=== PATIENT | male | born 1955 | race Caucasian/White ===

== ENCOUNTER 2021-09-08 13:43 | Inpatient (IN) | payer OTHER, MEDICARE ==
--- NOTE | 2021-09-08 14:39 | EDM.PDOC ---
ED HPI GENERAL MEDICAL PROBLEM - General Chief Complaint: Respiratory Problem Stated Complaint: COVID POSITIVE Time Seen by Provider: 09/08/21 14:20 Source of Information: Reports: Patient History Limitations: Reports: No Limitations - History of Present Illness INITIAL COMMENTS - FREE TEXT/NARRATIVE: This 66 yo male patient reports to the ED from the [facility] due to shortness of breath. The patient reports he tested positive for COVID at [facility]. The patient reports his symptoms started on Sunday Evening, but he has not been eating well over the past [address] Moss called from the [facility] reporting the patient reported chest pain and oxygen saturations <88%. The patient was sent to the ED for evaluation and treatment. Onset Date: 09/04/21 Duration: Constant, Getting Worse Location: Reports: Generalized Quality: Reports: Other Severity: Moderate Improves with: Reports: None Worsens with: Reports: None Context: Reports: Other Associated Symptoms: Reports: Chest Pain, Cough, Shortness of Breath, Weakness - Related Data Allergies Allergy/AdvReac Type Severity Reaction Status Date / Time No Known Allergies Allergy Verified 09/08/21 14:18 Home Meds: Home Meds Zolpidem [Ambien] 5 mg PO DAILY 09/08/21 [History] Past Medical History HEENT History: Reports: None Cardiovascular History: Reports: None Respiratory History: Reports: None Gastrointestinal History: Reports: None Genitourinary History: Reports: None Musculoskeletal History: Reports: None Neurological History: Reports: None Psychiatric History: Reports: None Endocrine/Metabolic History: Reports: None Hematologic History: Reports: None Immunologic History: Reports: None Oncologic (Cancer) History: Reports: None Dermatologic History: Reports: None - Infectious Disease History Infectious Disease History: Reports: None - Past Surgical History Head Surgeries/Procedures: Reports: None Social & Family History - Family History Family Medical History: No Pertinent Family History - Tobacco Use Tobacco Use Status *Q: Never Tobacco User Second Hand Smoke Exposure: No - Caffeine Use Caffeine Use: Reports: Coffee - Recreational Drug Use Recreational Drug Use: No ED ROS GENERAL - Review of Systems Review Of Systems: Comprehensive ROS is negative, except as noted in HPI. ED EXAM, GENERAL - Physical Exam Exam: See Below Exam Limited By: No Limitations General Appearance: Alert, WD/WN, Moderate Distress Eye Exam: Bilateral Eye: EOMI, Normal Inspection, PERRL Ears: Normal External Exam, Normal Canal, Hearing Grossly Normal, Normal TMs Nose: Normal Inspection, Normal Mucosa, No Blood Throat/Mouth: Normal Inspection, Normal Lips, Normal Teeth, Normal Gums, Normal Oropharynx, Normal Voice, No Airway Compromise Head: Atraumatic, Normocephalic, Sinus Tenderness Respiratory/Chest: Decreased Breath Sounds (bases bilaterally) Cardiovascular: No Edema, No Gallop, No JVD, No Murmur, No Rub, Tachycardia GI/Abdominal: Normal Bowel Sounds, Soft, Non-Tender, No Organomegaly, No Distention, No Abnormal Bruit, No Mass, Pelvis Stable (Male) Exam: Deferred Rectal (Males) Exam: Deferred Back Exam: Normal Inspection, Full Range of Motion, NT Extremities: Normal Inspection, Normal Range of Motion, Non-Tender, Normal Capillary Refill, No Pedal Edema Neurological: Alert, Oriented, CN II-XII Intact, Normal Cognition, Normal Gait, Normal Reflexes, No Motor/Sensory Deficits Psychiatric: Normal Affect, Normal Mood Skin Exam: Warm, Dry, Intact, Normal Color, No Rash Lymphatic: No Adenopathy #1 Interpretation EKG Date: 09/08/21 Time: 15:55 Rhythm: NSR Rate (Beats/Min): 97 Williamson: Normal P-Wave: Present QRS: Normal ST-T: Normal QT: Normal Comparison: No Change Course - Vital Signs Last Recorded V/S: Last Vital Signs Temp 100.1 F 09/08/21 14:06 Pulse 109 H 09/08/21 14:06 Resp 20 09/08/21 14:06 BP 125/80 09/08/21 14:06 Pulse Ox 92 L 09/08/21 14:07 - Orders/Labs/Meds Orders: Active Orders 24 hr Category Date Time Status CULTURE BLOOD [BC] Stat Lab 09/08/21 14:24 Received CULTURE BLOOD [BC] Stat Lab 09/08/21 14:26 Received Blood Culture x2 Reflex Set [OM.PC] Stat Oth 09/08/21 14:05 Ordered Labs: Laboratory Tests 09/08/21 09/08/21 09/08/21 Range/Units 14:24 14:24 14:24 WBC 7.9 (5.0-10.0) 10^3/uL RBC 4.43 L (4.6-6.2) 10^6/uL Hgb 14.1 (14.0-18.0) g/dL Hct 40.6 (40.0-54.0) % MCV 91.6 (80-100) fL MCH 31.8 (27.0-34.0) pg MCHC 34.7 (33.0-35.0) g/dL Plt Count 227 (150-450) 10^3/uL Neut % (Auto) 81.8 H (42.2-75.2) % Lymph % (Auto) 9.8 L (20.5-50.1) % [place] % (Auto) 8.3 H (2-8) % Eos % (Auto) 0.0 L (1.0-3.0) % Baso % (Auto) 0.1 (0.0-1.0) % Add Manual Diff Yes Neutrophils % (Manual) 81 H (42-75) % Band Neutrophils % 5 % Lymphocytes % (Manual) 7 L (20-50) % Monocytes % (Manual) 7 (2-8) % D-Dimer, Quantitative 2280 H (0-400) ng/mL Sodium 135 L (136-145) mmol/L Potassium 3.8 (3.5-5.1) mmol/L Chloride 100 (98-107) mmol/L Carbon Dioxide 24 (21-32) mmol/L Anion Gap 14.8 H (7-13) mEq/L BUN 19 H (7-18) mg/dL Creatinine 1.32 H (0.70-1.30) mg/dL Est Cr Clr Drug Dosing 62.21 mL/min Estimated GFR (MDRD) 54 BUN/Creatinine Ratio 14.4 (No establ ref range) Glucose 124 H (70-99) mg/dL Lactic Acid (0.4-2.0) mmol/L Calcium 7.9 L (8.5-10.1) mg/dL Total Bilirubin 0.7 (0.2-1.0) mg/dL AST 72 H (15-37) U/L ALT 38 (16-63) U/L Alkaline Phosphatase 55 (46-116) U/L Troponin I High Sens (<=76) pg/mL Total Protein 6.8 (6.4-8.2) g/dL Albumin 2.7 L (3.4-5.0) g/dL Globulin 4.1 Albumin/Globulin Ratio 0.66 09/08/21 09/08/21 Range/Units 14:24 14:24 WBC (5.0-10.0) 10^3/uL RBC (4.6-6.2) 10^6/uL Hgb (14.0-18.0) g/dL Hct (40.0-54.0) % MCV (80-100) fL MCH (27.0-34.0) pg MCHC (33.0-35.0) g/dL Plt Count (150-450) 10^3/uL Neut % (Auto) (42.2-75.2) % Lymph % (Auto) (20.5-50.1) % [place] % (Auto) (2-8) % Eos % (Auto) (1.0-3.0) % Baso % (Auto) (0.0-1.0) % Add Manual Diff Neutrophils % (Manual) (42-75) % Band Neutrophils % % Lymphocytes % (Manual) (20-50) % Monocytes % (Manual) (2-8) % D-Dimer, Quantitative (0-400) ng/mL Sodium (136-145) mmol/L Potassium (3.5-5.1) mmol/L Chloride (98-107) mmol/L Carbon Dioxide (21-32) mmol/L Anion Gap (7-13) mEq/L BUN (7-18) mg/dL Creatinine (0.70-1.30) mg/dL Est Cr Clr Drug Dosing mL/min Estimated GFR (MDRD) BUN/Creatinine Ratio (No establ ref range) Glucose (70-99) mg/dL Lactic Acid 1.5 (0.4-2.0) mmol/L Calcium (8.5-10.1) mg/dL Total Bilirubin (0.2-1.0) mg/dL AST (15-37) U/L ALT (16-63) U/L Alkaline Phosphatase (46-116) U/L Troponin I High Sens 21 (<=76) pg/mL Total Protein (6.4-8.2) g/dL Albumin (3.4-5.0) g/dL Globulin Albumin/Globulin Ratio Meds: Medications Discontinued Medications Generic Name Dose Route Start Last Admin Trade Name Freq PRN Reason Stop Dose Admin Iopamidol 100 ml 11/18/21 15:43 09/08/21 16:37 Iopamidol 755 Mg/Ml 100 Ml Bottle IVPUSH 09/08/21 15:44 79 ml ONETIME ONE Administration - Re-Assessments/Exams Free Text/Narrative Re-Assessment/Exam: 09/08/21 18:11 Nursing staff reported they had the patient off oxygen and his oxygen saturation dropped to the low 80% with increased difficulties breathing. This was with standing beside the bed and no physical exertion. Departure - Departure Time of Disposition: 18:58 Disposition: Admitted As Inpatient 66 Condition: Poor Clinical Impression: COVID, Hypoxia - Discharge Information *PRESCRIPTION DRUG MONITORING PROGRAM REVIEWED*: Not Applicable *COPY OF PRESCRIPTION DRUG MONITORING REPORT IN PATIENT RADHA: Not Applicable Care Plan Goals: Discussed the patient's history, examination, lab and CT results with Dr. Beard. Dr. Beard accepted the patient for continued evaluation and management at [facility] in [place]. Sepsis Event Note (ED) - Evaluation Sepsis Screening Result: No Definite Risk - Focused Exam Vital Signs: Vital Signs Temp Pulse Resp BP Pulse Ox 09/08/21 14:07 92 L 09/08/21 14:06 100.1 F 109 H 20 125/80 89 L - My Orders Last 24 Hours: My Active Orders 09/08/21 14:05 Blood Culture x2 Reflex Set [OM.PC] Stat 09/08/21 14:24 CULTURE BLOOD [BC] Stat 09/08/21 14:26 CULTURE BLOOD [BC] Stat - Assessment/Plan Last 24 Hours: My Active Orders 09/08/21 14:05 Blood Culture x2 Reflex Set [OM.PC] Stat 09/08/21 14:24 CULTURE BLOOD [BC] Stat 09/08/21 14:26 CULTURE BLOOD [BC] Stat
[2021-09-08 15:25] LABS: ANION GAP 14.8 mEq/L (7-13)
[2021-09-08] MEDS ORDERED: Iopamidol 755 Mg/ML 100 ML Bottle IVPUSH ONE (15:43)
--- NOTE | 2021-09-08 16:38 | CT ---
PROCEDURE INFORMATION: Exam: CT Chest With Contrast; Diagnostic Exam date and time: 09/08/2021 3:57 PM Age: 66 years old Clinical indication: Cough; Patient HX: Covid +, d-dimer 2200 TECHNIQUE: Imaging protocol: Diagnostic computed tomography of the chest with contrast. Radiation optimization: All CT scans at this facility use at least one of these dose optimization techniques: automated exposure control; mA and/or kV adjustment per patient size (includes targeted exams where dose is matched to clinical indication); or iterative reconstruction. Contrast material: ISOVUE 370; Contrast volume: 79 ml; Contrast route: INTRAVENOUS (IV); COMPARISON: No relevant prior studies available. FINDINGS: Lungs: Bilateral multifocal ground-glass infiltrates suspicious for COVID-19. Pleural spaces: Unremarkable. No pneumothorax. No pleural effusion. Heart: Unremarkable. No cardiomegaly. No pericardial effusion. Aorta: Unremarkable. No aortic aneurysm. Lymph nodes: Unremarkable. No enlarged lymph nodes. Bones/joints: Unremarkable. No acute fracture. Soft tissues: Small hiatus hernia. Small hypodense nodule in the left adrenal gland measures 1.1 cm; likely represents benign adenoma. IMPRESSION: 1. Multifocal infiltrates consistent with COVID-19. 2. No evidence of acute PE.
[2021-09-08] MEDS ORDERED: REMDESIVIR 200 MG in Sodium Chloride 0.9% 250 ML IV ONE (19:58)
[2021-09-08] MEDS ORDERED: Ondansetron 4 MG/2 ML SDV IVPUSH PRN (20:05)
[2021-09-08] MEDS ORDERED: Docusate Sodium 100 MG Cap PO PRN (20:05)
--- NOTE | 2021-09-08 20:19 | PCM.HP ---
H&P History of Present Illness - General Date of Service: 09/08/21 Admit Problem/Dx: Admission Diagnosis/Problem Admission Diagnosis/Problem Respiratory distress Source of Information: Patient - History of Present Illness Initial Comments - Free Text/Narative: h/o no chronic medical problems developed cough with sputum, subjective fever, malaise on Sunday increasing sob with activity, better with rest, associated with left sided chest discomfort no covid vaccine covid test positive on 09/07 went to clinic noted to have hypoxemia - Related Data Allergies/Adverse Reactions: Allergies Allergy/AdvReac Type Severity Reaction Status Date / Time No Known Allergies Allergy Verified 09/08/21 14:18 Home Medications: Home Meds Zolpidem [Ambien] 5 mg PO DAILY 09/08/21 [History] Past Medical History HEENT History: Reports: None Cardiovascular History: Reports: None Respiratory History: Reports: None Gastrointestinal History: Reports: None Genitourinary History: Reports: None Musculoskeletal History: Reports: None Neurological History: Reports: None Psychiatric History: Reports: None Endocrine/Metabolic History: Reports: None Hematologic History: Reports: None Immunologic History: Reports: None Oncologic (Cancer) History: Reports: None Dermatologic History: Reports: None - Infectious Disease History Infectious Disease History: Reports: None - Past Surgical History Head Surgeries/Procedures: Reports: None Social & Family History - Family History Family Medical History: No Pertinent Family History - Tobacco Use Tobacco Use Status *Q: Never Tobacco User Second Hand Smoke Exposure: No - Caffeine Use Caffeine Use: Reports: Coffee - Recreational Drug Use Recreational Drug Use: No H&P Review of Systems - Review of Systems: Review Of Systems: See Below General: Reports: Malaise, Weakness, Fatigue, Decreased Appetite Pulmonary: Reports: Shortness of Breath, Pleuritic Chest Pain Cardiovascular: Reports: Chest Pain. Denies: Edema Gastrointestinal: Denies: Abdominal Pain Genitourinary: Denies: Dysuria Psychiatric: Denies: Confusion Exam - Exam Exam: See Below - Vital Signs Vital Signs: Last Vital Signs Temp 100.1 F 09/08/21 14:06 Pulse 109 H 09/08/21 14:06 Resp 20 09/08/21 14:06 BP 125/80 09/08/21 14:06 Pulse Ox 92 L 09/08/21 14:07 Weight: 235 lb - Exam Quality Assessment: Supplemental Oxygen General: Alert, Oriented Neck: Supple Lungs: Normal Respiratory Effort, Decreased Breath Sounds, Rhonchi Cardiovascular: Regular Rate, Regular Rhythm GI/Abdominal Exam: Normal Bowel Sounds, Soft, Non-Tender Extremities: No Pedal Edema Skin: Warm, Dry Neurological: Cranial Nerves Intact, Reflexes Equal Bilateral Neuro Extensive - Mental Status: Alert, Oriented x3, Normal Mood/Affect Psychiatric: Alert, Normal Affect, Normal Mood - Patient Data Lab Results Last 24 hrs: Laboratory Results - last 24 hr 09/08/21 09/08/21 09/08/21 Range/Units 14:24 14:24 14:24 WBC 7.9 (5.0-10.0) 10^3/uL RBC 4.43 L (4.6-6.2) 10^6/uL Hgb 14.1 (14.0-18.0) g/dL Hct 40.6 (40.0-54.0) % MCV 91.6 (80-100) fL MCH 31.8 (27.0-34.0) pg MCHC 34.7 (33.0-35.0) g/dL Plt Count 227 (150-450) 10^3/uL Neut % (Auto) 81.8 H (42.2-75.2) % Lymph % (Auto) 9.8 L (20.5-50.1) % [place] % (Auto) 8.3 H (2-8) % Eos % (Auto) 0.0 L (1.0-3.0) % Baso % (Auto) 0.1 (0.0-1.0) % Add Manual Diff Yes Neutrophils % (Manual) 81 H (42-75) % Band Neutrophils % 5 % Lymphocytes % (Manual) 7 L (20-50) % Monocytes % (Manual) 7 (2-8) % D-Dimer, Quantitative 2280 H (0-400) ng/mL Sodium 135 L (136-145) mmol/L Potassium 3.8 (3.5-5.1) mmol/L Chloride 100 (98-107) mmol/L Carbon Dioxide 24 (21-32) mmol/L Anion Gap 14.8 H (7-13) mEq/L BUN 19 H (7-18) mg/dL Creatinine 1.32 H (0.70-1.30) mg/dL Est Cr Clr Drug Dosing 62.21 mL/min Estimated GFR (MDRD) 54 BUN/Creatinine Ratio 14.4 (No establ ref range) Glucose 124 H (70-99) mg/dL Lactic Acid (0.4-2.0) mmol/L Calcium 7.9 L (8.5-10.1) mg/dL Total Bilirubin 0.7 (0.2-1.0) mg/dL AST 72 H (15-37) U/L ALT 38 (16-63) U/L Alkaline Phosphatase 55 (46-116) U/L Troponin I High Sens (<=76) pg/mL Total Protein 6.8 (6.4-8.2) g/dL Albumin 2.7 L (3.4-5.0) g/dL Globulin 4.1 Albumin/Globulin Ratio 0.66 09/08/21 09/08/21 Range/Units 14:24 14:24 WBC (5.0-10.0) 10^3/uL RBC (4.6-6.2) 10^6/uL Hgb (14.0-18.0) g/dL Hct (40.0-54.0) % MCV (80-100) fL MCH (27.0-34.0) pg MCHC (33.0-35.0) g/dL Plt Count (150-450) 10^3/uL Neut % (Auto) (42.2-75.2) % Lymph % (Auto) (20.5-50.1) % [place] % (Auto) (2-8) % Eos % (Auto) (1.0-3.0) % Baso % (Auto) (0.0-1.0) % Add Manual Diff Neutrophils % (Manual) (42-75) % Band Neutrophils % % Lymphocytes % (Manual) (20-50) % Monocytes % (Manual) (2-8) % D-Dimer, Quantitative (0-400) ng/mL Sodium (136-145) mmol/L Potassium (3.5-5.1) mmol/L Chloride (98-107) mmol/L Carbon Dioxide (21-32) mmol/L Anion Gap (7-13) mEq/L BUN (7-18) mg/dL Creatinine (0.70-1.30) mg/dL Est Cr Clr Drug Dosing mL/min Estimated GFR (MDRD) BUN/Creatinine Ratio (No establ ref range) Glucose (70-99) mg/dL Lactic Acid 1.5 (0.4-2.0) mmol/L Calcium (8.5-10.1) mg/dL Total Bilirubin (0.2-1.0) mg/dL AST (15-37) U/L ALT (16-63) U/L Alkaline Phosphatase (46-116) U/L Troponin I High Sens 21 (<=76) pg/mL Total Protein (6.4-8.2) g/dL Albumin (3.4-5.0) g/dL Globulin Albumin/Globulin Ratio Result Diagrams: 09/08/21 14:24 09/08/21 14:24 - Problem List (1) Pneumonia due to COVID-19 virus SNOMED Code(s): 137773828520581362 ICD Code: U07.1 - COVID-19; J12.82 - PNEUMONIA DUE TO CORONAVIRUS DISEASE 2018 Status: Acute Current Visit: Yes (2) COVID SNOMED Code(s): 687389386 ICD Code: U07.1 - COVID-19 Status: Acute Current Visit: No (3) Hypoxia SNOMED Code(s): 964338290 ICD Code: R09.02 - HYPOXEMIA Status: Acute Current Visit: No Problem List Initiated/Reviewed/Updated: Yes Orders Last 24hrs: Active Orders 24 hr Category Date Time Status Admission Diagnosis [ADT] Urgent ADT 09/08/21 19:01 Ordered Admission Status [Patient Status] [ADT] Urgent ADT 09/08/21 19:01 Active Oxygen Therapy [RC] PRN Care 09/08/21 20:05 Ordered Peripheral IV Care [RC] . DIRECTED Care 09/08/21 20:07 Ordered Up With Assistance [RC] ASDIRECTED Care 09/08/21 20:05 Ordered VTE/DVT Education [RC] PER UNIT ROUTINE Care 09/08/21 20:05 Ordered Vital Signs [RC] Q4H Care 09/08/21 20:05 Ordered Regular Diet [DIET] Diet 09/08/21 Breakfast Ordered Venous Doppler Lwr Ext Bi [US] Routine Exams 09/09/21 08:00 Ordered CBC WITH AUTO DIFF [HEME] AM Lab 09/09/21 05:11 Ordered CBC WITH AUTO DIFF [HEME] AM Lab 09/10/21 05:11 Ordered CBC WITH AUTO DIFF [HEME] AM Lab 09/11/21 05:11 Ordered CBC WITH AUTO DIFF [HEME] AM Lab 09/12/21 05:11 Ordered CBC WITH AUTO DIFF [HEME] AM Lab 09/13/21 05:11 Ordered CBC WITH AUTO DIFF [HEME] AM Lab 09/14/21 05:11 Ordered COMPREHENSIVE METABOLIC PN,CMP [CHEM] DAILY Lab 09/08/21 20:00 Ordered COMPREHENSIVE METABOLIC PN,CMP [CHEM] DAILY Lab 09/09/21 20:00 Ordered COMPREHENSIVE METABOLIC PN,CMP [CHEM] DAILY Lab 09/10/21 20:00 Ordered COMPREHENSIVE METABOLIC PN,CMP [CHEM] DAILY Lab 09/11/21 20:00 Ordered COMPREHENSIVE METABOLIC PN,CMP [CHEM] DAILY Lab 09/12/21 20:00 Ordered CULTURE BLOOD [BC] Stat Lab 09/08/21 14:24 Received CULTURE BLOOD [BC] Stat Lab 09/08/21 14:26 Received DD [D-DIMER QUANTITATIVE] [COAG] AM Lab 09/09/21 05:11 Ordered DD [D-DIMER QUANTITATIVE] [COAG] AM Lab 09/10/21 05:11 Ordered DD [D-DIMER QUANTITATIVE] [COAG] AM Lab 09/11/21 05:11 Ordered DD [D-DIMER QUANTITATIVE] [COAG] AM Lab 09/12/21 05:11 Ordered PROCALCITONIN [REF] Routine Lab 09/09/21 05:00 Ordered Acetaminophen [TylenoL] Med 09/08/21 20:05 Ordered 650 mg PO Q4H PRN Docusate Sodium [Colace] Med 09/08/21 20:05 Ordered 100 mg PO BID PRN Enoxaparin [Lovenox] Med 09/08/21 21:00 Ordered 100 mg SUBCUT BID Ondansetron [Zofran] Med 09/08/21 20:05 Ordered 4 mg IVPUSH Q4H PRN Remdesivir 100 mg Med 09/09/21 20:00 Ordered Sodium Chloride 0.9% [Normal Saline AdvBag] 100 ml IV Q24H Remdesivir 200 mg Med 09/08/21 19:58 Ordered Sodium Chloride 0.9% [Normal Saline] 250 ml IV ONETIME Sodium Chloride 0.9% [Saline Flush] Med 09/08/21 20:05 Ordered 10 ml FLUSH ASDIRECTED PRN Zolpidem [Ambien] Med 09/08/21 20:05 Ordered 5 mg PO BEDTIME PRN dexAMETHasone Med 09/08/21 21:00 Ordered 6 mg PO DAILY@0800 Blood Culture x2 Reflex Set [OM.PC] Stat Oth 09/08/21 14:05 Ordered Peripheral IV Insertion Adult [OM.PC] Routine Oth 09/08/21 20:05 Ordered Saline Lock Insert [OM.PC] Routine Oth 09/08/21 20:05 Ordered Resuscitation Status Routine Resus Stat 09/08/21 20:05 Ordered Medication Orders Acetaminophen (Acetaminophen 325 Mg Tab) 650 mg PO Q4H PRN PRN Reason: Pain (Mild 1-3)/fever Dexamethasone (Dexamethasone 6 Mg Tablet) 6 mg PO DAILY@0800 ERIKA Docusate Sodium (Docusate Sodium 100 Mg Cap) 100 mg PO BID PRN PRN Reason: Constipation Enoxaparin Sodium (Enoxaparin 40 Mg/0.4 Ml Syringe) 100 mg SUBCUT BID ERIKA Remdesivir 200 mg/ Sodium (Chloride) 250 mls @ 250 mls/hr IV ONETIME ONE Stop: 09/08/21 20:57 Remdesivir 100 mg/ Sodium (Chloride) 100 mls @ 100 mls/hr IV Q24H ERIKA Stop: 09/12/21 20:59 Ondansetron HCl (Ondansetron 4 Mg/2 Ml Sdv) 4 mg IVPUSH Q4H PRN PRN Reason: Nausea/Vomiting Sodium Chloride (Sodium Chloride 0.9% 10 Ml Syringe) 10 ml FLUSH ASDIRECTED PRN PRN Reason: Keep Vein Open Zolpidem Tartrate (Zolpidem 5 Mg Tab) 5 mg PO BEDTIME PRN PRN Reason: Sleep Assessment/Plan Comment:: Acute hypoxemic respiratory failure Will supplement oxygen as needed Acute covid 19 pneumonia Vaccination status: unvaccinated Symptom onset: about 09/04/21 Covid test positive: 09/07/21 Treat with dexamethasone Treat with remdesivir Treat with mvi /vit d Follow daily cbc, bmp, trop, procal, ddimer Evaluations for concurrent bacterial pneumonia: Procalcitonin: pending no leukocytosis Hold Abx for now Evaluations for thrombotic complications Ddimer: increased Prophylaxis: use therapeutic dose bid lovenox CT chest negative for PE check US r/o dvt Hyponatremia Mild will recheck in AM Mildly Elevated Creatinine No h/o CKD will recheck in AM chest pain likely related to pneumonia negative trop - support oxygen need - f/up after pneumonia - consider stress test
[2021-09-08] MEDS: Enoxaparin 100 MG/1 ML Syringe SUBCUT SCH (20:47)
[2021-09-08] MEDS: Acetaminophen 325 MG Tab PO PRN (20:48)
[2021-09-08] MEDS: Dexamethasone 6 MG TABLET PO SCH (20:48)
[2021-09-08] MEDS: Zolpidem 5 MG Tab PO PRN (20:48)
[2021-09-09] MEDS: Acetaminophen 325 MG Tab PO PRN (04:18)
[2021-09-09 07:13] LABS: CHLORIDE,CL 102 mmol/L (98-107); SODIUM,NA 136 mmol/L (136-145)
[2021-09-09] MEDS: Dexamethasone 6 MG TABLET PO SCH (09:29)
[2021-09-09] MEDS: Enoxaparin 100 MG/1 ML Syringe SUBCUT SCH ×2 (09:29→21:31)
--- NOTE | 2021-09-09 11:13 | US ---
EXAMINATION: Venous Doppler Lwr Ext Bi SEX: Male AGE: 66 years CLINICAL HISTORY: 66-year-old hospitalized, COVID Positive, male with abnormally high serum D dimer. R/O DVT. Interpretation: Negative exam. No current sonographic evidence of DVT either lower extremity. No sign of intraluminal echogenic thrombus and normal compressibility deep veins of both lower extremities (calf, knee, thigh and groin, bilaterally). Satisfactory augmentation and venous waveforms demonstrated respectively in the peroneal/posterior tibial veins of both calves, popliteal veins behind both knees, and proximally in the femoral veins of both thighs and groins. No lymphadenopathy. No popliteal or Ramos's cyst spine the knees. No soft tissue hematomas.
--- NOTE | 2021-09-09 12:35 | PCM.PN ---
- General Info Date of Service: 09/09/21 Admission Dx/Problem (Free Text): Admission Diagnosis/Problem Admission Diagnosis/Problem Respiratory distress Subjective Update: continued to have moderate sob has been on [place] oxygen overnight had to increase upto 5 l/min has cough, no associated diarrhea Functional Status: Reports: Pain Controlled - Review of Systems Pulmonary: Reports: Shortness of Breath, Cough Gastrointestinal: Denies: Abdominal Pain Genitourinary: Denies: Dysuria Neurological: Denies: Confusion - Patient Data Vitals - Most Recent: Last Vital Signs Temp 97.1 F 09/09/21 11:40 Pulse 78 09/09/21 11:40 Resp 18 09/09/21 11:40 BP 114/72 09/09/21 11:40 Pulse Ox 87 L 09/09/21 11:40 Weight - Most Recent: 209 lb 11.2 oz I&O - Last 24 Hours: Intake & Output 09/08/21 09/09/21 09/09/21 22:59 06:59 14:59 Intake Total 540 540 360 Output Total 500 700 Balance 40 -160 360 Lab Results Last 24 Hours: Laboratory Results - last 24 hr 09/08/21 09/08/21 09/08/21 Range/Units 14:24 14:24 14:24 WBC 7.9 (5.0-10.0) 10^3/uL RBC 4.43 L (4.6-6.2) 10^6/uL Hgb 14.1 (14.0-18.0) g/dL Hct 40.6 (40.0-54.0) % MCV 91.6 (80-100) fL MCH 31.8 (27.0-34.0) pg MCHC 34.7 (33.0-35.0) g/dL Plt Count 227 (150-450) 10^3/uL Neut % (Auto) 81.8 H (42.2-75.2) % Lymph % (Auto) 9.8 L (20.5-50.1) % [place] % (Auto) 8.3 H (2-8) % Eos % (Auto) 0.0 L (1.0-3.0) % Baso % (Auto) 0.1 (0.0-1.0) % Add Manual Diff Yes Neutrophils % (Manual) 81 H (42-75) % Band Neutrophils % 5 % Lymphocytes % (Manual) 7 L (20-50) % Monocytes % (Manual) 7 (2-8) % D-Dimer, Quantitative 2280 H (0-400) ng/mL Sodium 135 L (136-145) mmol/L Potassium 3.8 (3.5-5.1) mmol/L Chloride 100 (98-107) mmol/L Carbon Dioxide 24 (21-32) mmol/L Anion Gap 14.8 H (7-13) mEq/L BUN 19 H (7-18) mg/dL Creatinine 1.32 H (0.70-1.30) mg/dL Est Cr Clr Drug Dosing 62.21 mL/min Estimated GFR (MDRD) 54 BUN/Creatinine Ratio 14.4 (No establ ref range) Glucose 124 H (70-99) mg/dL Lactic Acid (0.4-2.0) mmol/L Calcium 7.9 L (8.5-10.1) mg/dL Total Bilirubin 0.7 (0.2-1.0) mg/dL AST 72 H (15-37) U/L ALT 38 (16-63) U/L Alkaline Phosphatase 55 (46-116) U/L Troponin I High Sens (<=76) pg/mL Total Protein 6.8 (6.4-8.2) g/dL Albumin 2.7 L (3.4-5.0) g/dL Globulin 4.1 Albumin/Globulin Ratio 0.66 09/08/21 09/08/21 09/09/21 Range/Units 14:24 14:24 06:30 WBC (5.0-10.0) 10^3/uL RBC (4.6-6.2) 10^6/uL Hgb (14.0-18.0) g/dL Hct (40.0-54.0) % MCV (80-100) fL MCH (27.0-34.0) pg MCHC (33.0-35.0) g/dL Plt Count (150-450) 10^3/uL Neut % (Auto) (42.2-75.2) % Lymph % (Auto) (20.5-50.1) % [place] % (Auto) (2-8) % Eos % (Auto) (1.0-3.0) % Baso % (Auto) (0.0-1.0) % Add Manual Diff Neutrophils % (Manual) (42-75) % Band Neutrophils % % Lymphocytes % (Manual) (20-50) % Monocytes % (Manual) (2-8) % D-Dimer, Quantitative (0-400) ng/mL Sodium 136 (136-145) mmol/L Potassium 4.0 (3.5-5.1) mmol/L Chloride 102 (98-107) mmol/L Carbon Dioxide 24 (21-32) mmol/L Anion Gap 14.0 H (7-13) mEq/L BUN 18 (7-18) mg/dL Creatinine 1.06 (0.70-1.30) mg/dL Est Cr Clr Drug Dosing 77.47 mL/min Estimated GFR (MDRD) > 60 BUN/Creatinine Ratio 17.0 (No establ ref range) Glucose 158 H (70-99) mg/dL Lactic Acid 1.5 (0.4-2.0) mmol/L Calcium 8.1 L (8.5-10.1) mg/dL Total Bilirubin 0.7 (0.2-1.0) mg/dL AST 65 H (15-37) U/L ALT 35 (16-63) U/L Alkaline Phosphatase 54 (46-116) U/L Troponin I High Sens 21 (<=76) pg/mL Total Protein 6.4 (6.4-8.2) g/dL Albumin 2.4 L (3.4-5.0) g/dL Globulin 4.0 Albumin/Globulin Ratio 0.60 09/09/21 09/09/21 Range/Units 06:30 06:30 WBC 6.4 (5.0-10.0) 10^3/uL RBC 4.25 L (4.6-6.2) 10^6/uL Hgb 13.5 L (14.0-18.0) g/dL Hct 39.1 L (40.0-54.0) % MCV 92.0 (80-100) fL MCH 31.8 (27.0-34.0) pg MCHC 34.5 (33.0-35.0) g/dL Plt Count 254 (150-450) 10^3/uL Neut % (Auto) 83.6 H (42.2-75.2) % Lymph % (Auto) 10.6 L (20.5-50.1) % [place] % (Auto) 5.6 (2-8) % Eos % (Auto) 0.0 L (1.0-3.0) % Baso % (Auto) 0.2 (0.0-1.0) % Add Manual Diff Neutrophils % (Manual) (42-75) % Band Neutrophils % % Lymphocytes % (Manual) (20-50) % Monocytes % (Manual) (2-8) % D-Dimer, Quantitative 1950 H (0-400) ng/mL Sodium (136-145) mmol/L Potassium (3.5-5.1) mmol/L Chloride (98-107) mmol/L Carbon Dioxide (21-32) mmol/L Anion Gap (7-13) mEq/L BUN (7-18) mg/dL Creatinine (0.70-1.30) mg/dL Est Cr Clr Drug Dosing mL/min Estimated GFR (MDRD) BUN/Creatinine Ratio (No establ ref range) Glucose (70-99) mg/dL Lactic Acid (0.4-2.0) mmol/L Calcium (8.5-10.1) mg/dL Total Bilirubin (0.2-1.0) mg/dL AST (15-37) U/L ALT (16-63) U/L Alkaline Phosphatase (46-116) U/L Troponin I High Sens (<=76) pg/mL Total Protein (6.4-8.2) g/dL Albumin (3.4-5.0) g/dL Globulin Albumin/Globulin Ratio Med Orders - Current: Current Medications Acetaminophen (Acetaminophen 325 Mg Tab) 650 mg PO Q4H PRN PRN Reason: Pain (Mild 1-3)/fever Last Admin: 09/09/21 04:18 Dose: 650 mg Documented by: Dexamethasone (Dexamethasone 6 Mg Tablet) 6 mg PO DAILY@0800 [facility] Last Admin: 09/09/21 09:29 Dose: 6 mg Documented by: Docusate Sodium (Docusate Sodium 100 Mg Cap) 100 mg PO BID PRN PRN Reason: Constipation Enoxaparin Sodium (Enoxaparin 100 Mg/1 Ml Syringe) 100 mg SUBCUT BID [facility] Last Admin: 09/09/21 09:29 Dose: 100 mg Documented by: Remdesivir 100 mg/ Sodium (Chloride) 100 mls @ 100 mls/hr IV Q24H ERIKA Stop: 09/12/21 20:59 Ondansetron HCl (Ondansetron 4 Mg/2 Ml Sdv) 4 mg IVPUSH Q4H PRN PRN Reason: Nausea/Vomiting Sodium Chloride (Sodium Chloride 0.9% 10 Ml Syringe) 10 ml FLUSH ASDIRECTED PRN PRN Reason: Keep Vein Open Zolpidem Tartrate (Zolpidem 5 Mg Tab) 5 mg PO BEDTIME PRN PRN Reason: Sleep Last Admin: 09/08/21 20:48 Dose: 5 mg Documented by: Discontinued Medications Remdesivir 200 mg/ Sodium (Chloride) 250 mls @ 250 mls/hr IV ONETIME ONE Stop: 09/08/21 20:57 Last Admin: 09/08/21 20:43 Dose: 250 mls/hr Documented by: Iopamidol (Iopamidol 755 Mg/Ml 100 Ml Bottle) 100 ml IVPUSH ONETIME ONE Stop: 09/08/21 15:44 Last Admin: 09/08/21 16:37 Dose: 79 ml Documented by: - Exam Quality Assessment: Supplemental Oxygen General: Alert, Oriented Lungs: Rhonchi Cardiovascular: Regular Rate, Regular Rhythm GI/Abdominal Exam: Normal Bowel Sounds, Soft, Non-Tender Skin: Warm Neurological: No New Focal Deficit Psy/Mental Status: Alert, Normal Affect, Normal Mood - Patient Data Lab Results Last 24 hrs: Laboratory Results - last 24 hr 09/08/21 09/08/21 09/08/21 Range/Units 14:24 14:24 14:24 WBC 7.9 (5.0-10.0) 10^3/uL RBC 4.43 L (4.6-6.2) 10^6/uL Hgb 14.1 (14.0-18.0) g/dL Hct 40.6 (40.0-54.0) % MCV 91.6 (80-100) fL MCH 31.8 (27.0-34.0) pg MCHC 34.7 (33.0-35.0) g/dL Plt Count 227 (150-450) 10^3/uL Neut % (Auto) 81.8 H (42.2-75.2) % Lymph % (Auto) 9.8 L (20.5-50.1) % [place] % (Auto) 8.3 H (2-8) % Eos % (Auto) 0.0 L (1.0-3.0) % Baso % (Auto) 0.1 (0.0-1.0) % Add Manual Diff Yes Neutrophils % (Manual) 81 H (42-75) % Band Neutrophils % 5 % Lymphocytes % (Manual) 7 L (20-50) % Monocytes % (Manual) 7 (2-8) % D-Dimer, Quantitative 2280 H (0-400) ng/mL Sodium 135 L (136-145) mmol/L Potassium 3.8 (3.5-5.1) mmol/L Chloride 100 (98-107) mmol/L Carbon Dioxide 24 (21-32) mmol/L Anion Gap 14.8 H (7-13) mEq/L BUN 19 H (7-18) mg/dL Creatinine 1.32 H (0.70-1.30) mg/dL Est Cr Clr Drug Dosing 62.21 mL/min Estimated GFR (MDRD) 54 BUN/Creatinine Ratio 14.4 (No establ ref range) Glucose 124 H (70-99) mg/dL Lactic Acid (0.4-2.0) mmol/L Calcium 7.9 L (8.5-10.1) mg/dL Total Bilirubin 0.7 (0.2-1.0) mg/dL AST 72 H (15-37) U/L ALT 38 (16-63) U/L Alkaline Phosphatase 55 (46-116) U/L Troponin I High Sens (<=76) pg/mL Total Protein 6.8 (6.4-8.2) g/dL Albumin 2.7 L (3.4-5.0) g/dL Globulin 4.1 Albumin/Globulin Ratio 0.66 09/08/21 09/08/21 09/09/21 Range/Units 14:24 14:24 06:30 WBC (5.0-10.0) 10^3/uL RBC (4.6-6.2) 10^6/uL Hgb (14.0-18.0) g/dL Hct (40.0-54.0) % MCV (80-100) fL MCH (27.0-34.0) pg MCHC (33.0-35.0) g/dL Plt Count (150-450) 10^3/uL Neut % (Auto) (42.2-75.2) % Lymph % (Auto) (20.5-50.1) % [place] % (Auto) (2-8) % Eos % (Auto) (1.0-3.0) % Baso % (Auto) (0.0-1.0) % Add Manual Diff Neutrophils % (Manual) (42-75) % Band Neutrophils % % Lymphocytes % (Manual) (20-50) % Monocytes % (Manual) (2-8) % D-Dimer, Quantitative (0-400) ng/mL Sodium 136 (136-145) mmol/L Potassium 4.0 (3.5-5.1) mmol/L Chloride 102 (98-107) mmol/L Carbon Dioxide 24 (21-32) mmol/L Anion Gap 14.0 H (7-13) mEq/L BUN 18 (7-18) mg/dL Creatinine 1.06 (0.70-1.30) mg/dL Est Cr Clr Drug Dosing 77.47 mL/min Estimated GFR (MDRD) > 60 BUN/Creatinine Ratio 17.0 (No establ ref range) Glucose 158 H (70-99) mg/dL Lactic Acid 1.5 (0.4-2.0) mmol/L Calcium 8.1 L (8.5-10.1) mg/dL Total Bilirubin 0.7 (0.2-1.0) mg/dL AST 65 H (15-37) U/L ALT 35 (16-63) U/L Alkaline Phosphatase 54 (46-116) U/L Troponin I High Sens 21 (<=76) pg/mL Total Protein 6.4 (6.4-8.2) g/dL Albumin 2.4 L (3.4-5.0) g/dL Globulin 4.0 Albumin/Globulin Ratio 0.60 09/09/21 09/09/21 Range/Units 06:30 06:30 WBC 6.4 (5.0-10.0) 10^3/uL RBC 4.25 L (4.6-6.2) 10^6/uL Hgb 13.5 L (14.0-18.0) g/dL Hct 39.1 L (40.0-54.0) % MCV 92.0 (80-100) fL MCH 31.8 (27.0-34.0) pg MCHC 34.5 (33.0-35.0) g/dL Plt Count 254 (150-450) 10^3/uL Neut % (Auto) 83.6 H (42.2-75.2) % Lymph % (Auto) 10.6 L (20.5-50.1) % [place] % (Auto) 5.6 (2-8) % Eos % (Auto) 0.0 L (1.0-3.0) % Baso % (Auto) 0.2 (0.0-1.0) % Add Manual Diff Neutrophils % (Manual) (42-75) % Band Neutrophils % % Lymphocytes % (Manual) (20-50) % Monocytes % (Manual) (2-8) % D-Dimer, Quantitative 1950 H (0-400) ng/mL Sodium (136-145) mmol/L Potassium (3.5-5.1) mmol/L Chloride (98-107) mmol/L Carbon Dioxide (21-32) mmol/L Anion Gap (7-13) mEq/L BUN (7-18) mg/dL Creatinine (0.70-1.30) mg/dL Est Cr Clr Drug Dosing mL/min Estimated GFR (MDRD) BUN/Creatinine Ratio (No establ ref range) Glucose (70-99) mg/dL Lactic Acid (0.4-2.0) mmol/L Calcium (8.5-10.1) mg/dL Total Bilirubin (0.2-1.0) mg/dL AST (15-37) U/L ALT (16-63) U/L Alkaline Phosphatase (46-116) U/L Troponin I High Sens (<=76) pg/mL Total Protein (6.4-8.2) g/dL Albumin (3.4-5.0) g/dL Globulin Albumin/Globulin Ratio Result Diagrams: 09/09/21 06:30 09/09/21 06:30 Sepsis Event Note - Evaluation Sepsis Screening Result: No Definite Risk - Focused Exam Vital Signs: Vital Signs Temp Pulse Resp BP BP Pulse Ox 09/09/21 11:40 97.1 F 78 18 114/72 87 L 09/09/21 08:32 109/78 09/09/21 08:00 97 F 68 20 88/51 L 90 L 09/09/21 04:00 97.8 F 67 20 96/54 L 94 L - Problem List & Annotations (1) Pneumonia due to COVID-19 virus SNOMED Code(s): 574745871956426770 Code(s): U07.1 - COVID-19; J12.82 - PNEUMONIA DUE TO CORONAVIRUS DISEASE 2019 Status: Acute Current Visit: Yes (2) COVID SNOMED Code(s): 772724088 Code(s): U07.1 - COVID-19 Status: Acute Current Visit: No (3) Hypoxia SNOMED Code(s): 558293380 Code(s): R09.02 - HYPOXEMIA Status: Acute Current Visit: No - Problem List Review Problem List Initiated/Reviewed/Updated: Yes - My Orders Last 24 Hours: My Active Orders 09/08/21 20:05 Oxygen Therapy [RC] PRN Up With Assistance [RC] ASDIRECTED VTE/DVT Education [RC] Vital Signs [RC] 00,04,08,12,16,20 Acetaminophen [TylenoL] 650 mg PO Q4H PRN Docusate Sodium [Colace] 100 mg PO BID PRN Ondansetron [Zofran] 4 mg IVPUSH Q4H PRN Sodium Chloride 0.9% [Saline Flush] 10 ml FLUSH ASDIRECTED PRN Zolpidem [Ambien] 5 mg PO BEDTIME PRN Peripheral IV Insertion Adult [OM.PC] Routine Saline Lock Insert [OM.PC] Routine Resuscitation Status Routine 09/08/21 20:07 Peripheral IV Care [RC] 00,04,08,12,16,20 09/08/21 21:00 Enoxaparin [Lovenox] 100 mg SUBCUT BID dexAMETHasone 6 mg PO DAILY@0800 09/08/21 22:11 Isolation [COMM] Routine 09/09/21 06:30 PROCALCITONIN [REF] Routine 09/09/21 20:00 COMPREHENSIVE METABOLIC PN,CMP [CHEM] DAILY Remdesivir 100 mg Sodium Chloride 0.9% [Normal Saline AdvBag] 100 ml IV Q24H 09/10/21 05:11 CBC WITH AUTO DIFF [HEME] AM DD [D-DIMER QUANTITATIVE] [COAG] AM 11/20/21 20:00 COMPREHENSIVE METABOLIC PN,CMP [CHEM] DAILY 09/11/21 05:11 CBC WITH AUTO DIFF [HEME] AM DD [D-DIMER QUANTITATIVE] [COAG] AM 09/11/21 20:00 COMPREHENSIVE METABOLIC PN,CMP [CHEM] DAILY 09/12/21 05:11 CBC WITH AUTO DIFF [HEME] AM DD [D-DIMER QUANTITATIVE] [COAG] AM 09/12/21 20:00 COMPREHENSIVE METABOLIC PN,CMP [CHEM] DAILY 09/13/21 05:11 CBC WITH AUTO DIFF [HEME] AM 09/14/21 05:11 CBC WITH AUTO DIFF [HEME] AM - Plan Plan:: Acute hypoxemic respiratory failure Will supplement oxygen as needed Acute covid 19 pneumonia Vaccination status: unvaccinated Symptom onset: about 09/04/21 Covid test positive: 09/07/21 Treat with dexamethasone Treat with remdesivir Treat with mvi /vit d Follow daily cbc, bmp, trop, procal, ddimer Evaluations for concurrent bacterial pneumonia: Procalcitonin: pending no leukocytosis Hold Abx for now Evaluations for thrombotic complications Ddimer: increased Prophylaxis: use therapeutic dose bid lovenox CT chest negative for PE check US r/o dvt today Hyponatremia Mild will recheck in AM Mildly Elevated Creatinine likely JEN POA improved will recheck in AM hyperglycemia noted likely due to dexamethasone no h/o DM will need out pt f/up chest pain likely related to pneumonia negative trop - support oxygen need - f/up after pneumonia - consider stress test
[2021-09-09] MEDS: Multivitamins, Therapeutic with Minerals Tab PO SCH (13:32)
[2021-09-09] MEDS: Cholecalciferol (Vitamin D3) 25 MCG Tab PO SCH (13:32)
[2021-09-09] MEDS: REMDESIVIR 100 MG in Sodium Chloride 0.9% 100 ML IV SCH (21:31)
[2021-09-09 21:35] LABS: ANION GAP 12.8 mEq/L (7-13); CHLORIDE,CL 103 mmol/L (98-107); SODIUM,NA 138 mmol/L (136-145)
[2021-09-09] MEDS: Zolpidem 5 MG Tab PO PRN (23:00)
[2021-09-10] MEDS ORDERED: diphenhydrAMINE 50 MG Cap PO ONE (00:02)
[2021-09-10 07:26] LABS: ANION GAP 10.8 mEq/L (7-13); CHLORIDE,CL 106 mmol/L (98-107); SODIUM,NA 139 mmol/L (136-145)
[2021-09-10] MEDS: Dexamethasone 6 MG TABLET PO SCH (08:35)
[2021-09-10] MEDS: Multivitamins, Therapeutic with Minerals Tab PO SCH (08:35)
[2021-09-10] MEDS: Cholecalciferol (Vitamin D3) 25 MCG Tab PO SCH (08:35)
[2021-09-10] MEDS: Enoxaparin 100 MG/1 ML Syringe SUBCUT SCH (08:36)
[2021-09-10] MEDS ORDERED: 50% Dextrose in Water 50 ML Syringe IVPUSH PRN (09:18)
[2021-09-10] MEDS: cefTRIAXone 1 GM in Sodium Chloride 0.9% 50 ML IV SCH (10:12)
[2021-09-10] MEDS: Insulin Lispro 100 Units/ML 3 ML Vial SUBCUT SCH ×4 (10:15→21:27)
[2021-09-10] MEDS: Azithromycin 500 MG in Sodium Chloride 0.9% 250 ML IV SCH (10:53)
--- NOTE | 2021-09-10 13:32 | PCM.PN ---
- General Info Date of Service: 09/10/21 Admission Dx/Problem (Free Text): Admission Diagnosis/Problem Admission Diagnosis/Problem Respiratory distress Subjective Update: continued to have moderate sob - better with oxygen, worse with activity has been on [place] oxygen - had to increase to simple mask has cough, no associated diarrhea but had loose BM Functional Status: Reports: Tolerating Diet - Review of Systems General: Reports: Weakness Pulmonary: Reports: Shortness of Breath. Denies: Wheezing Cardiovascular: Denies: Chest Pain, Palpitations Gastrointestinal: Denies: Abdominal Pain Neurological: Denies: Confusion - Patient Data Vitals - Most Recent: Last Vital Signs Temp 97.7 F 09/10/21 08:00 Pulse 75 09/10/21 08:00 Resp 18 09/10/21 08:00 BP 109/63 09/10/21 08:00 Pulse Ox 95 09/10/21 10:34 Weight - Most Recent: 209 lb 11.2 oz I&O - Last 24 Hours: Intake & Output 09/09/21 09/10/21 09/10/21 22:59 06:59 14:59 Intake Total 590 120 710 Output Total 250 125 200 Balance 340 -5 510 Lab Results Last 24 Hours: Laboratory Results - last 24 hr 09/09/21 09/09/21 09/10/21 Range/Units 06:30 20:53 06:45 WBC 15.0 H (5.0-10.0) 10^3/uL RBC 4.16 L (4.6-6.2) 10^6/uL Hgb 13.4 L (14.0-18.0) g/dL Hct 38.3 L (40.0-54.0) % MCV 92.1 (80-100) fL MCH 32.2 (27.0-34.0) pg MCHC 35.0 (33.0-35.0) g/dL Plt Count 317 (150-450) 10^3/uL Neut % (Auto) 67.7 (42.2-75.2) % Lymph % (Auto) 6.5 L (20.5-50.1) % Russell % (Auto) 5.0 (2-8) % Baso % (Auto) 0.1 (0.0-1.0) % Add Manual Diff Yes Neutrophils % (Manual) 82 H (42-75) % Band Neutrophils % 6 % Lymphocytes % (Manual) 7 L (20-50) % Monocytes % (Manual) 5 (2-8) % D-Dimer, Quantitative (0-400) ng/mL Sodium 138 (136-145) mmol/L Potassium 3.8 (3.5-5.1) mmol/L Chloride 103 (98-107) mmol/L Carbon Dioxide 26 (21-32) mmol/L Anion Gap 12.8 (7-13) mEq/L BUN 23 H (7-18) mg/dL Creatinine 1.03 (0.70-1.30) mg/dL Est Cr Clr Drug Dosing 79.73 mL/min Estimated GFR (MDRD) > 60 BUN/Creatinine Ratio 22.3 (No establ ref range) Glucose 191 H (70-99) mg/dL POC Glucose (70-99) mg/dL Calcium 8.2 L (8.5-10.1) mg/dL Total Bilirubin 0.6 (0.2-1.0) mg/dL AST 60 H (15-37) U/L ALT 38 (16-63) U/L Alkaline Phosphatase 63 (46-116) U/L Total Protein 6.5 (6.4-8.2) g/dL Albumin 2.4 L (3.4-5.0) g/dL Globulin 4.1 Albumin/Globulin Ratio 0.59 Procalcitonin 0.10 H ng/mL 09/10/21 09/10/21 09/10/21 Range/Units 06:45 06:45 11:42 WBC (5.0-10.0) 10^3/uL RBC (4.6-6.2) 10^6/uL Hgb (14.0-18.0) g/dL Hct (40.0-54.0) % MCV (80-100) fL MCH (27.0-34.0) pg MCHC (33.0-35.0) g/dL Plt Count (150-450) 10^3/uL Neut % (Auto) (42.2-75.2) % Lymph % (Auto) (20.5-50.1) % Russell % (Auto) (2-8) % Baso % (Auto) (0.0-1.0) % Add Manual Diff Neutrophils % (Manual) (42-75) % Band Neutrophils % % Lymphocytes % (Manual) (20-50) % Monocytes % (Manual) (2-8) % D-Dimer, Quantitative 844 H (0-400) ng/mL Sodium 139 (136-145) mmol/L Potassium 3.8 (3.5-5.1) mmol/L Chloride 106 (98-107) mmol/L Carbon Dioxide 26 (21-32) mmol/L Anion Gap 10.8 (7-13) mEq/L BUN 20 H (7-18) mg/dL Creatinine 0.92 (0.70-1.30) mg/dL Est Cr Clr Drug Dosing 89.26 mL/min Estimated GFR (MDRD) > 60 BUN/Creatinine Ratio 21.7 (No establ ref range) Glucose 185 H (70-99) mg/dL POC Glucose 211 H (70-99) mg/dL Calcium 8.1 L (8.5-10.1) mg/dL Total Bilirubin 0.4 (0.2-1.0) mg/dL AST 48 H (15-37) U/L ALT 34 (16-63) U/L Alkaline Phosphatase 63 (46-116) U/L Total Protein 6.3 L (6.4-8.2) g/dL Albumin 2.3 L (3.4-5.0) g/dL Globulin 4.0 Albumin/Globulin Ratio 0.58 Procalcitonin ng/mL [facility] Results Last 24 Hours: Microbiology 09/08/21 14:26 Aerobic Blood Culture - Preliminary Blood - Venous - Lab Draw NO GROWTH AFTER 1 DAY Anaerobic Blood Culture - Preliminary NO GROWTH AFTER 1 DAY 09/08/21 14:24 Aerobic Blood Culture - Preliminary Blood - Arm, Left NO GROWTH AFTER 1 DAY Anaerobic Blood Culture - Preliminary NO GROWTH AFTER 1 DAY Med Orders - Current: Current Medications Acetaminophen (Acetaminophen 325 Mg Tab) 650 mg PO Q4H PRN PRN Reason: Pain (Mild 1-3)/fever Last Admin: 09/09/21 04:18 Dose: 650 mg Documented by: Cholecalciferol (Cholecalciferol (Vitamin D3) 25 Mcg Tab) 25 mcg PO DAILY [facility] Last Admin: 09/10/21 08:35 Dose: 25 mcg Documented by: Dexamethasone (Dexamethasone 6 Mg Tablet) 6 mg PO DAILY@0800 [facility] Last Admin: 09/10/21 08:35 Dose: 6 mg Documented by: Dextrose/Water (50% Dextrose In Water 50 Ml Syringe) 25 ml IVPUSH ASDIRECTED PRN PRN Reason: Hypoglycemia BS<70 Docusate Sodium (Docusate Sodium 100 Mg Cap) 100 mg PO BID PRN PRN Reason: Constipation Enoxaparin Sodium (Enoxaparin 40 Mg/0.4 Ml Syringe) 40 mg SUBCUT BID [facility] Remdesivir 100 mg/ Sodium (Chloride) 100 mls @ 100 mls/hr IV Q24H [facility] Stop: 09/12/21 20:59 Last Admin: 09/09/21 21:31 Dose: 100 mls/hr Documented by: Ceftriaxone Sodium 1 gm/ (Sodium Chloride) 50 mls @ 100 mls/hr IV Q24H [facility] Last Infusion: 09/10/21 10:52 Dose: Infused Documented by: Azithromycin 500 mg/ Sodium (Chloride) 250 mls @ 250 mls/hr IV Q24H [facility] Last Infusion: 09/10/21 12:38 Dose: Infused Documented by: Insulin Human Lispro (Insulin Lispro 100 Units/Ml 3 Ml Vial) 0 unit SUBCUT WITHMEALSANDBED [facility]; Protocol Last Admin: 09/10/21 12:47 Dose: 4 units Documented by: Multivitamins/Minerals (Multivitamins, Therapeutic With Minerals Tab) 1 tab PO WITHBREAKFAST [facility] Last Admin: 09/10/21 08:35 Dose: 1 tab Documented by: Ondansetron HCl (Ondansetron 4 Mg/2 Ml Sdv) 4 mg IVPUSH Q4H PRN PRN Reason: Nausea/Vomiting Sodium Chloride (Sodium Chloride 0.9% 10 Ml Syringe) 10 ml FLUSH ASDIRECTED PRN PRN Reason: Keep Vein Open Zolpidem Tartrate (Zolpidem 5 Mg Tab) 5 mg PO BEDTIME PRN PRN Reason: Sleep Last Admin: 09/09/21 23:00 Dose: 5 mg Documented by: Discontinued Medications Diphenhydramine HCl (Diphenhydramine 50 Mg Cap) 50 mg PO ONETIME ONE Stop: 09/10/21 00:03 Last Admin: 09/10/21 00:16 Dose: 50 mg Documented by: Enoxaparin Sodium (Enoxaparin 100 Mg/1 Ml Syringe) 100 mg SUBCUT BID [facility] Last Admin: 09/10/21 08:36 Dose: 100 mg Documented by: Remdesivir 200 mg/ Sodium (Chloride) 250 mls @ 250 mls/hr IV ONETIME ONE Stop: 09/08/21 20:57 Last Admin: 09/08/21 20:43 Dose: 250 mls/hr Documented by: Iopamidol (Iopamidol 755 Mg/Ml 100 Ml Bottle) 100 ml IVPUSH ONETIME ONE Stop: 09/08/21 15:44 Last Admin: 09/08/21 16:37 Dose: 79 ml Documented by: - Exam Quality Assessment: Supplemental Oxygen General: Alert, Oriented Lungs: Normal Respiratory Effort, Rhonchi Cardiovascular: Regular Rate, Regular Rhythm GI/Abdominal Exam: Normal Bowel Sounds, Soft, Non-Tender Extremities: No Pedal Edema - Patient Data Lab Results Last 24 hrs: Laboratory Results - last 24 hr 09/09/21 09/09/21 09/10/21 Range/Units 06:30 20:53 06:45 WBC 15.0 H (5.0-10.0) 10^3/uL RBC 4.16 L (4.6-6.2) 10^6/uL Hgb 13.4 L (14.0-18.0) g/dL Hct 38.3 L (40.0-54.0) % MCV 92.1 (80-100) fL MCH 32.2 (27.0-34.0) pg MCHC 35.0 (33.0-35.0) g/dL Plt Count 317 (150-450) 10^3/uL Neut % (Auto) 67.7 (42.2-75.2) % Lymph % (Auto) 6.5 L (20.5-50.1) % Russell % (Auto) 5.0 (2-8) % Baso % (Auto) 0.1 (0.0-1.0) % Add Manual Diff Yes Neutrophils % (Manual) 82 H (42-75) % Band Neutrophils % 6 % Lymphocytes % (Manual) 7 L (20-50) % Monocytes % (Manual) 5 (2-8) % D-Dimer, Quantitative (0-400) ng/mL Sodium 138 (136-145) mmol/L Potassium 3.8 (3.5-5.1) mmol/L Chloride 103 (98-107) mmol/L Carbon Dioxide 26 (21-32) mmol/L Anion Gap 12.8 (7-13) mEq/L BUN 23 H (7-18) mg/dL Creatinine 1.03 (0.70-1.30) mg/dL Est Cr Clr Drug Dosing 79.73 mL/min Estimated GFR (MDRD) > 60 BUN/Creatinine Ratio 22.3 (No establ ref range) Glucose 191 H (70-99) mg/dL POC Glucose (70-99) mg/dL Calcium 8.2 L (8.5-10.1) mg/dL Total Bilirubin 0.6 (0.2-1.0) mg/dL AST 60 H (15-37) U/L ALT 38 (16-63) U/L Alkaline Phosphatase 63 (46-116) U/L Total Protein 6.5 (6.4-8.2) g/dL Albumin 2.4 L (3.4-5.0) g/dL Globulin 4.1 Albumin/Globulin Ratio 0.59 Procalcitonin 0.10 H ng/mL 09/10/21 09/10/21 09/10/21 Range/Units 06:45 06:45 11:42 WBC (5.0-10.0) 10^3/uL RBC (4.6-6.2) 10^6/uL Hgb (14.0-18.0) g/dL Hct (40.0-54.0) % MCV (80-100) fL MCH (27.0-34.0) pg MCHC (33.0-35.0) g/dL Plt Count (150-450) 10^3/uL Neut % (Auto) (42.2-75.2) % Lymph % (Auto) (20.5-50.1) % Russell % (Auto) (2-8) % Baso % (Auto) (0.0-1.0) % Add Manual Diff Neutrophils % (Manual) (42-75) % Band Neutrophils % % Lymphocytes % (Manual) (20-50) % Monocytes % (Manual) (2-8) % D-Dimer, Quantitative 844 H (0-400) ng/mL Sodium 139 (136-145) mmol/L Potassium 3.8 (3.5-5.1) mmol/L Chloride 106 (98-107) mmol/L Carbon Dioxide 26 (21-32) mmol/L Anion Gap 10.8 (7-13) mEq/L BUN 20 H (7-18) mg/dL Creatinine 0.92 (0.70-1.30) mg/dL Est Cr Clr Drug Dosing 89.26 mL/min Estimated GFR (MDRD) > 60 BUN/Creatinine Ratio 21.7 (No establ ref range) Glucose 185 H (70-99) mg/dL POC Glucose 211 H (70-99) mg/dL Calcium 8.1 L (8.5-10.1) mg/dL Total Bilirubin 0.4 (0.2-1.0) mg/dL AST 48 H (15-37) U/L ALT 34 (16-63) U/L Alkaline Phosphatase 63 (46-116) U/L Total Protein 6.3 L (6.4-8.2) g/dL Albumin 2.3 L (3.4-5.0) g/dL Globulin 4.0 Albumin/Globulin Ratio 0.58 Procalcitonin ng/mL Result Diagrams: 09/10/21 06:45 09/10/21 06:45 [facility] Results Last 24 hrs: Microbiology 09/08/21 14:26 Aerobic Blood Culture - Preliminary Blood - Venous - Lab Draw NO GROWTH AFTER 1 DAY Anaerobic Blood Culture - Preliminary NO GROWTH AFTER 1 DAY 09/08/21 14:24 Aerobic Blood Culture - Preliminary Blood - Arm, Left NO GROWTH AFTER 1 DAY Anaerobic Blood Culture - Preliminary NO GROWTH AFTER 1 DAY Sepsis Event Note - Evaluation Sepsis Screening Result: No Definite Risk - Focused Exam Vital Signs: Vital Signs Temp Pulse Resp BP Pulse Ox 09/10/21 10:34 95 09/10/21 08:00 97.7 F 75 18 109/63 93 L 09/10/21 04:00 97.9 F 81 22 H 93/55 L 94 L - Problem List & Annotations (1) Pneumonia due to COVID-19 virus SNOMED Code(s): 411286227626666255 Code(s): U07.1 - COVID-19; J12.82 - PNEUMONIA DUE TO CORONAVIRUS DISEASE 2019 Status: Acute Current Visit: Yes (2) COVID SNOMED Code(s): 825865547 Code(s): U07.1 - COVID-19 Status: Acute Current Visit: No (3) Hypoxia SNOMED Code(s): 038444794 Code(s): R09.02 - HYPOXEMIA Status: Acute Current Visit: No - Problem List Review Problem List Initiated/Reviewed/Updated: Yes - My Orders Last 24 Hours: My Active Orders 09/09/21 12:45 Cholecalciferol (Vitamin D3) [Vitamin D3] 25 mcg PO DAILY 09/09/21 13:00 Multivitamins/Minerals [Vitamins and Minerals] 1 tab PO WITHBREAKFAST 09/09/21 20:00 Remdesivir 100 mg Sodium Chloride 0.9% [Normal Saline AdvBag] 100 ml IV Q24H 09/10/21 09:18 Blood Glucose Check, Bedside [RC] WITHMEALSANDBED Dextrose 50% in Water 25 ml IVPUSH ASDIRECTED PRN 09/10/21 09:30 cefTRIAXone [Rocephin] 1 gm Sodium Chloride 0.9% [Normal Saline AdvBag] 50 ml IV Q24H 09/10/21 10:00 Azithromycin [Zithromax] 500 mg Sodium Chloride 0.9% [Normal Saline AdvBag] 250 ml IV Q24H Insulin Lispro [HumaLOG] See Protocol SUBCUT WITHMEALSANDBED 09/10/21 21:00 Enoxaparin [Lovenox] 40 mg SUBCUT BID 09/11/21 05:11 BASIC METABOLIC PANEL,BMP [CHEM] AM CBC WITH AUTO DIFF [HEME] AM DD [D-DIMER QUANTITATIVE] [COAG] AM HEPATIC FUNCTION PANEL,HFP [CHEM] AM PROCALCITONIN [REF] AM 09/12/21 05:11 BASIC METABOLIC PANEL,BMP [CHEM] AM CBC WITH AUTO DIFF [HEME] AM DD [D-DIMER QUANTITATIVE] [COAG] AM HEPATIC FUNCTION PANEL,HFP [CHEM] AM 09/13/21 05:11 BASIC METABOLIC PANEL,BMP [CHEM] AM CBC WITH AUTO DIFF [HEME] AM HEPATIC FUNCTION PANEL,HFP [CHEM] AM 09/14/21 05:11 BASIC METABOLIC PANEL,BMP [CHEM] AM CBC WITH AUTO DIFF [HEME] AM HEPATIC FUNCTION PANEL,HFP [CHEM] AM 09/15/21 05:11 BASIC METABOLIC PANEL,BMP [CHEM] AM HEPATIC FUNCTION PANEL,HFP [CHEM] AM 09/16/21 05:11 BASIC METABOLIC PANEL,BMP [CHEM] AM - Plan Plan:: Acute hypoxemic respiratory failure Will supplement oxygen as needed Acute covid 19 pneumonia Vaccination status: unvaccinated Symptom onset: about 09/04/21 Covid test positive: 09/07/21 Treat with dexamethasone Treat with remdesivir Treat with mvi /vit d Follow daily cbc, bmp, trop, procal, ddimer Evaluations for concurrent bacterial pneumonia: Procalcitonin: low earlier developed leukocytosis today c/o thick sputum start azithro, ceftriaxone for possible community acquired pneumonia repeat procal Evaluations for thrombotic complications Ddimer: increased but improving CT chest negative for PE LE US r/o dvt negative Prophylaxis: decrease lovenox to 40 mg bid Hyponatremia Mild will follow Mildly Elevated Creatinine likely JEN POA improved will recheck in AM hyperglycemia noted likely due to dexamethasone no h/o DM start suplemental insulin and hypoglycemia protocol as needed will need out pt f/up chest pain likely related to pneumonia negative trop - support oxygen need - f/up after pneumonia - consider stress test
[2021-09-10] MEDS: REMDESIVIR 100 MG in Sodium Chloride 0.9% 100 ML IV SCH (19:56)
[2021-09-10] MEDS: Enoxaparin 40 MG/0.4 ML Syringe SUBCUT SCH (20:58)
[2021-09-10] MEDS: Zolpidem 5 MG Tab PO PRN (21:24)
[2021-09-10] MEDS: Acetaminophen 325 MG Tab PO PRN (21:25)
[2021-09-11 07:14] LABS: ANION GAP 8.8 mEq/L (7-13); CHLORIDE,CL 110 mmol/L (98-107); SODIUM,NA 143 mmol/L (136-145)
[2021-09-11] MEDS: Enoxaparin 40 MG/0.4 ML Syringe SUBCUT SCH ×2 (08:39→21:10)
[2021-09-11] MEDS: Dexamethasone 6 MG TABLET PO SCH (08:39)
[2021-09-11] MEDS: Cholecalciferol (Vitamin D3) 25 MCG Tab PO SCH (08:39)
[2021-09-11] MEDS: Multivitamins, Therapeutic with Minerals Tab PO SCH (08:39)
[2021-09-11] MEDS: Insulin Lispro 100 Units/ML 3 ML Vial SUBCUT SCH ×4 (08:40→21:43)
[2021-09-11] MEDS: cefTRIAXone 1 GM in Sodium Chloride 0.9% 50 ML IV SCH (09:47)
[2021-09-11] MEDS: Azithromycin 500 MG in Sodium Chloride 0.9% 250 ML IV SCH (10:24)
[2021-09-11] MEDS: Acetaminophen 325 MG Tab PO PRN ×2 (15:32→21:10)
--- NOTE | 2021-09-11 15:43 | PCM.PN ---
- General Info Date of Service: 09/11/21 Admission Dx/Problem (Free Text): Admission Diagnosis/Problem Admission Diagnosis/Problem Respiratory distress Subjective Update: continued to have moderate sob - better with oxygen, worse with activity has been on [place] oxygen when eating and simple mask most other times has cough, with yellow sputum no associated diarrhea but had loose BM Functional Status: Reports: Pain Controlled, Tolerating Diet, Ambulating - Review of Systems General: Reports: Weakness. Denies: Fever Pulmonary: Reports: Shortness of Breath Cardiovascular: Denies: Chest Pain, Edema Gastrointestinal: Denies: Abdominal Pain Genitourinary: Denies: Dysuria Neurological: Denies: Confusion - Patient Data Vitals - Most Recent: Last Vital Signs Temp 98.6 F 09/11/21 15:36 Pulse 98 09/11/21 15:36 Resp 22 H 09/11/21 15:36 BP 125/77 09/11/21 15:36 Pulse Ox 86 L 09/11/21 15:36 Weight - Most Recent: 209 lb 11.2 oz I&O - Last 24 Hours: Intake & Output 09/11/21 09/11/21 09/11/21 06:59 14:59 22:59 Intake Total 700 960 Output Total 300 200 Balance 400 760 Lab Results Last 24 Hours: Laboratory Results - last 24 hr 09/10/21 09/10/21 09/11/21 Range/Units 16:55 21:15 06:35 WBC 16.3 H (5.0-10.0) 10^3/uL RBC 4.06 L (4.6-6.2) 10^6/uL Hgb 13.2 L (14.0-18.0) g/dL Hct 38.2 L (40.0-54.0) % MCV 94.1 (80-100) fL MCH 32.5 (27.0-34.0) pg MCHC 34.6 (33.0-35.0) g/dL Plt Count 363 (150-450) 10^3/uL Neut % (Auto) 87.9 H (42.2-75.2) % Lymph % (Auto) 5.9 L (20.5-50.1) % Lake % (Auto) 5.9 (2-8) % Eos % (Auto) 0.1 L (1.0-3.0) % Baso % (Auto) 0.2 (0.0-1.0) % D-Dimer, Quantitative (0-400) ng/mL Sodium (136-145) mmol/L Potassium (3.5-5.1) mmol/L Chloride (98-107) mmol/L Carbon Dioxide (21-32) mmol/L Anion Gap (7-13) mEq/L BUN (7-18) mg/dL Creatinine (0.70-1.30) mg/dL Est Cr Clr Drug Dosing mL/min Estimated GFR (MDRD) Glucose (70-99) mg/dL POC Glucose 200 H 147 H (70-99) mg/dL Calcium (8.5-10.1) mg/dL Total Bilirubin (0.2-1.0) mg/dL Direct Bilirubin (0.0-0.2) mg/dL Indirect Bilirubin AST (15-37) U/L ALT (16-63) U/L Alkaline Phosphatase (46-116) U/L Total Protein (6.4-8.2) g/dL Albumin (3.4-5.0) g/dL Globulin Albumin/Globulin Ratio 09/11/21 09/11/21 09/11/21 Range/Units 06:35 06:35 08:30 WBC (5.0-10.0) 10^3/uL RBC (4.6-6.2) 10^6/uL Hgb (14.0-18.0) g/dL Hct (40.0-54.0) % MCV (80-100) fL MCH (27.0-34.0) pg MCHC (33.0-35.0) g/dL Plt Count (150-450) 10^3/uL Neut % (Auto) (42.2-75.2) % Lymph % (Auto) (20.5-50.1) % Lake % (Auto) (2-8) % Eos % (Auto) (1.0-3.0) % Baso % (Auto) (0.0-1.0) % D-Dimer, Quantitative 574 H (0-400) ng/mL Sodium 143 (136-145) mmol/L Potassium 3.8 (3.5-5.1) mmol/L Chloride 110 H (98-107) mmol/L Carbon Dioxide 28 (21-32) mmol/L Anion Gap 8.8 (7-13) mEq/L BUN 21 H (7-18) mg/dL Creatinine 0.99 (0.70-1.30) mg/dL Est Cr Clr Drug Dosing 82.95 mL/min Estimated GFR (MDRD) > 60 Glucose 116 H (70-99) mg/dL POC Glucose 105 H (70-99) mg/dL Calcium 7.9 L (8.5-10.1) mg/dL Total Bilirubin 0.5 (0.2-1.0) mg/dL Direct Bilirubin 0.2 (0.0-0.2) mg/dL Indirect Bilirubin 0.3 AST 52 H (15-37) U/L ALT 42 (16-63) U/L Alkaline Phosphatase 62 (46-116) U/L Total Protein 6.1 L (6.4-8.2) g/dL Albumin 2.3 L (3.4-5.0) g/dL Globulin 3.8 Albumin/Globulin Ratio 0.61 // Range/Units 11:27 WBC (5.0-10.0) 10^3/uL RBC (4.6-6.2) 10^6/uL Hgb (14.0-18.0) g/dL Hct (40.0-54.0) % MCV (80-100) fL MCH (27.0-34.0) pg MCHC (33.0-35.0) g/dL Plt Count (150-450) 10^3/uL Neut % (Auto) (42.2-75.2) % Lymph % (Auto) (20.5-50.1) % Lake % (Auto) (2-8) % Eos % (Auto) (1.0-3.0) % Baso % (Auto) (0.0-1.0) % D-Dimer, Quantitative (0-400) ng/mL Sodium (136-145) mmol/L Potassium (3.5-5.1) mmol/L Chloride (98-107) mmol/L Carbon Dioxide (21-32) mmol/L Anion Gap (7-13) mEq/L BUN (7-18) mg/dL Creatinine (0.70-1.30) mg/dL Est Cr Clr Drug Dosing mL/min Estimated GFR (MDRD) Glucose (70-99) mg/dL POC Glucose 166 H (70-99) mg/dL Calcium (8.5-10.1) mg/dL Total Bilirubin (0.2-1.0) mg/dL Direct Bilirubin (0.0-0.2) mg/dL Indirect Bilirubin AST (15-37) U/L ALT (16-63) U/L Alkaline Phosphatase (46-116) U/L Total Protein (6.4-8.2) g/dL Albumin (3.4-5.0) g/dL Globulin Albumin/Globulin Ratio [facility]man Results Last 24 Hours: Microbiology 09/08/21 14:26 Aerobic Blood Culture - Preliminary Blood - Venous - Lab Draw NO GROWTH AFTER 3 DAYS Anaerobic Blood Culture - Preliminary NO GROWTH AFTER 3 DAYS 09/08/21 14:24 Aerobic Blood Culture - Preliminary Blood - Arm, Left NO GROWTH AFTER 3 DAYS Anaerobic Blood Culture - Preliminary NO GROWTH AFTER 3 DAYS Med Orders - Current: Current Medications Acetaminophen (Acetaminophen 325 Mg Tab) 650 mg PO Q4H PRN PRN Reason: Pain (Mild 1-3)/fever Last Admin: 09/11/21 15:32 Dose: 650 mg Documented by: Cholecalciferol (Cholecalciferol (Vitamin D3) 25 Mcg Tab) 25 mcg PO DAILY [facility] Last Admin: 09/11/21 08:39 Dose: 25 mcg Documented by: Dexamethasone (Dexamethasone 6 Mg Tablet) 6 mg PO DAILY@0800 [facility] Last Admin: 09/11/21 08:39 Dose: 6 mg Documented by: Dextrose/Water (50% Dextrose In Water 50 Ml Syringe) 25 ml IVPUSH ASDIRECTED PRN PRN Reason: Hypoglycemia BS<70 Docusate Sodium (Docusate Sodium 100 Mg Cap) 100 mg PO BID PRN PRN Reason: Constipation Enoxaparin Sodium (Enoxaparin 40 Mg/0.4 Ml Syringe) 40 mg SUBCUT BID [facility] Last Admin: 09/11/21 08:39 Dose: 40 mg Documented by: Remdesivir 100 mg/ Sodium (Chloride) 100 mls @ 100 mls/hr IV Q24H [facility] Stop: 09/12/21 20:59 Last Admin: 09/10/21 19:56 Dose: 100 mls/hr Documented by: Ceftriaxone Sodium 1 gm/ (Sodium Chloride) 50 mls @ 100 mls/hr IV Q24H [facility] Last Infusion: 09/11/21 10:19 Dose: Infused Documented by: Azithromycin 500 mg/ Sodium (Chloride) 250 mls @ 250 mls/hr IV Q24H [facility] Last Infusion: 09/11/21 11:30 Dose: Infused Documented by: Insulin Human Lispro (Insulin Lispro 100 Units/Ml 3 Ml Vial) 0 unit SUBCUT WITHMEALSANDBED [facility]; Protocol Last Admin: 09/11/21 12:12 Dose: 2 units Documented by: Multivitamins/Minerals (Multivitamins, Therapeutic With Minerals Tab) 1 tab PO WITHBREAKFAST [facility] Last Admin: 09/11/21 08:39 Dose: 1 tab Documented by: Ondansetron HCl (Ondansetron 4 Mg/2 Ml Sdv) 4 mg IVPUSH Q4H PRN PRN Reason: Nausea/Vomiting Sodium Chloride (Sodium Chloride 0.9% 10 Ml Syringe) 10 ml FLUSH ASDIRECTED PRN PRN Reason: Keep Vein Open Zolpidem Tartrate (Zolpidem 5 Mg Tab) 10 mg PO BEDTIME PRN PRN Reason: Sleep Last Admin: 09/10/21 21:24 Dose: 10 mg Documented by: Discontinued Medications Diphenhydramine HCl (Diphenhydramine 50 Mg Cap) 50 mg PO ONETIME ONE Stop: 09/10/21 00:03 Last Admin: 09/10/21 00:16 Dose: 50 mg Documented by: Enoxaparin Sodium (Enoxaparin 100 Mg/1 Ml Syringe) 100 mg SUBCUT BID [facility] Last Admin: 09/10/21 08:36 Dose: 100 mg Documented by: Remdesivir 200 mg/ Sodium (Chloride) 250 mls @ 250 mls/hr IV ONETIME ONE Stop: 09/08/21 20:57 Last Admin: 09/08/21 20:43 Dose: 250 mls/hr Documented by: Iopamidol (Iopamidol 755 Mg/Ml 100 Ml Bottle) 100 ml IVPUSH ONETIME ONE Stop: 09/08/21 15:44 Last Admin: 09/08/21 16:37 Dose: 79 ml Documented by: Zolpidem Tartrate (Zolpidem 5 Mg Tab) 5 mg PO BEDTIME PRN PRN Reason: Sleep Last Admin: 09/09/21 23:00 Dose: 5 mg Documented by: - Exam Quality Assessment: Supplemental Oxygen General: Alert, Oriented Neck: Supple Lungs: Decreased Breath Sounds, Rhonchi Cardiovascular: Regular Rate, Regular Rhythm GI/Abdominal Exam: Normal Bowel Sounds, Soft, Non-Tender Extremities: No Pedal Edema - Patient Data Lab Results Last 24 hrs: Laboratory Results - last 24 hr 09/10/21 09/10/21 09/11/21 Range/Units 16:55 21:15 06:35 WBC 16.3 H (5.0-10.0) 10^3/uL RBC 4.06 L (4.6-6.2) 10^6/uL Hgb 13.2 L (14.0-18.0) g/dL Hct 38.2 L (40.0-54.0) % MCV 94.1 (80-100) fL MCH 32.5 (27.0-34.0) pg MCHC 34.6 (33.0-35.0) g/dL Plt Count 363 (150-450) 10^3/uL Neut % (Auto) 87.9 H (42.2-75.2) % Lymph % (Auto) 5.9 L (20.5-50.1) % Lake % (Auto) 5.9 (2-8) % Eos % (Auto) 0.1 L (1.0-3.0) % Baso % (Auto) 0.2 (0.0-1.0) % D-Dimer, Quantitative (0-400) ng/mL Sodium (136-145) mmol/L Potassium (3.5-5.1) mmol/L Chloride (98-107) mmol/L Carbon Dioxide (21-32) mmol/L Anion Gap (7-13) mEq/L BUN (7-18) mg/dL Creatinine (0.70-1.30) mg/dL Est Cr Clr Drug Dosing mL/min Estimated GFR (MDRD) Glucose (70-99) mg/dL POC Glucose 200 H 147 H (70-99) mg/dL Calcium (8.5-10.1) mg/dL Total Bilirubin (0.2-1.0) mg/dL Direct Bilirubin (0.0-0.2) mg/dL Indirect Bilirubin AST (15-37) U/L ALT (16-63) U/L Alkaline Phosphatase (46-116) U/L Total Protein (6.4-8.2) g/dL Albumin (3.4-5.0) g/dL Globulin Albumin/Globulin Ratio 09/11/21 09/11/21 09/11/21 Range/Units 06:35 06:35 08:30 WBC (5.0-10.0) 10^3/uL RBC (4.6-6.2) 10^6/uL Hgb (14.0-18.0) g/dL Hct (40.0-54.0) % MCV (80-100) fL MCH (27.0-34.0) pg MCHC (33.0-35.0) g/dL Plt Count (150-450) 10^3/uL Neut % (Auto) (42.2-75.2) % Lymph % (Auto) (20.5-50.1) % Lake % (Auto) (2-8) % Eos % (Auto) (1.0-3.0) % Baso % (Auto) (0.0-1.0) % D-Dimer, Quantitative 574 H (0-400) ng/mL Sodium 143 (136-145) mmol/L Potassium 3.8 (3.5-5.1) mmol/L Chloride 110 H (98-107) mmol/L Carbon Dioxide 28 (21-32) mmol/L Anion Gap 8.8 (7-13) mEq/L BUN 21 H (7-18) mg/dL Creatinine 0.99 (0.70-1.30) mg/dL Est Cr Clr Drug Dosing 82.95 mL/min Estimated GFR (MDRD) > 60 Glucose 116 H (70-99) mg/dL POC Glucose 105 H (70-99) mg/dL Calcium 7.9 L (8.5-10.1) mg/dL Total Bilirubin 0.5 (0.2-1.0) mg/dL Direct Bilirubin 0.2 (0.0-0.2) mg/dL Indirect Bilirubin 0.3 AST 52 H (15-37) U/L ALT 42 (16-63) U/L Alkaline Phosphatase 62 (46-116) U/L Total Protein 6.1 L (6.4-8.2) g/dL Albumin 2.3 L (3.4-5.0) g/dL Globulin 3.8 Albumin/Globulin Ratio 0.61 09/11/21 Range/Units 11:27 WBC (5.0-10.0) 10^3/uL RBC (4.6-6.2) 10^6/uL Hgb (14.0-18.0) g/dL Hct (40.0-54.0) % MCV (80-100) fL MCH (27.0-34.0) pg MCHC (33.0-35.0) g/dL Plt Count (150-450) 10^3/uL Neut % (Auto) (42.2-75.2) % Lymph % (Auto) (20.5-50.1) % Lake % (Auto) (2-8) % Eos % (Auto) (1.0-3.0) % Baso % (Auto) (0.0-1.0) % D-Dimer, Quantitative (0-400) ng/mL Sodium (136-145) mmol/L Potassium (3.5-5.1) mmol/L Chloride (98-107) mmol/L Carbon Dioxide (21-32) mmol/L Anion Gap (7-13) mEq/L BUN (7-18) mg/dL Creatinine (0.70-1.30) mg/dL Est Cr Clr Drug Dosing mL/min Estimated GFR (MDRD) Glucose (70-99) mg/dL POC Glucose 166 H (70-99) mg/dL Calcium (8.5-10.1) mg/dL Total Bilirubin (0.2-1.0) mg/dL Direct Bilirubin (0.0-0.2) mg/dL Indirect Bilirubin AST (15-37) U/L ALT (16-63) U/L Alkaline Phosphatase (46-116) U/L Total Protein (6.4-8.2) g/dL Albumin (3.4-5.0) g/dL Globulin Albumin/Globulin Ratio Result Diagrams: 09/11/21 06:35 09/11/21 06:35 [facility]man Results Last 24 hrs: Microbiology 09/08/21 14:26 Aerobic Blood Culture - Preliminary Blood - Venous - Lab Draw NO GROWTH AFTER 3 DAYS Anaerobic Blood Culture - Preliminary NO GROWTH AFTER 3 DAYS 09/08/21 14:24 Aerobic Blood Culture - Preliminary Blood - Arm, Left NO GROWTH AFTER 3 DAYS Anaerobic Blood Culture - Preliminary NO GROWTH AFTER 3 DAYS Sepsis Event Note - Evaluation Sepsis Screening Result: No Definite Risk - Focused Exam Vital Signs: Vital Signs Temp Pulse Resp BP Pulse Ox 09/11/21 15:36 98.6 F 98 22 H 125/77 86 L 09/11/21 12:13 99.5 F 106 H 24 H 116/80 92 L 09/11/21 08:37 97.2 F 81 20 122/79 95 09/11/21 04:00 98.0 F 86 22 H 112/74 89 L - Problem List & Annotations (1) Pneumonia due to COVID-19 virus SNOMED Code(s): 499979606429442397 Code(s): U07.1 - COVID-19; J12.82 - PNEUMONIA DUE TO CORONAVIRUS DISEASE 2019 Status: Acute Current Visit: Yes (2) COVID SNOMED Code(s): 070024149 Code(s): U07.1 - COVID-19 Status: Acute Current Visit: No (3) Hypoxia SNOMED Code(s): 327659969 Code(s): R09.02 - HYPOXEMIA Status: Acute Current Visit: No - Problem List Review Problem List Initiated/Reviewed/Updated: Yes - My Orders Last 24 Hours: My Active Orders 09/10/21 20:44 Zolpidem [Ambien] 10 mg PO BEDTIME PRN 09/10/21 21:00 Enoxaparin [Lovenox] 40 mg SUBCUT BID 09/11/21 06:35 PROCALCITONIN [REF] AM 09/12/21 05:11 BASIC METABOLIC PANEL,BMP [CHEM] AM CBC WITH AUTO DIFF [HEME] AM DD [D-DIMER QUANTITATIVE] [COAG] AM HEPATIC FUNCTION PANEL,[facility] [CHEM] AM 09/13/21 05:11 BASIC METABOLIC PANEL,BMP [CHEM] AM CBC WITH AUTO DIFF [HEME] AM HEPATIC FUNCTION PANEL,[facility] [CHEM] AM 09/14/21 05:11 BASIC METABOLIC PANEL,BMP [CHEM] AM CBC WITH AUTO DIFF [HEME] AM HEPATIC FUNCTION PANEL,[facility] [CHEM] AM 09/15/21 05:11 BASIC METABOLIC PANEL,BMP [CHEM] AM HEPATIC FUNCTION PANEL,[facility] [CHEM] AM 09/16/21 05:11 BASIC METABOLIC PANEL,BMP [CHEM] AM - Plan Plan:: Acute hypoxemic respiratory failure Will supplement oxygen as needed Acute covid 19 pneumonia Vaccination status: unvaccinated Symptom onset: about 09/04/21 Covid test positive: 09/07/21 Treat with dexamethasone Treat with remdesivir Treat with mvi /vit d Follow daily cbc, bmp, trop, procal, ddimer Evaluations for concurrent bacterial pneumonia: Procalcitonin: low earlier continued leukocytosis c/o thick sputum started azithro, ceftriaxone for possible community acquired pneumonia follow procal Evaluations for thrombotic complications Ddimer: increased but improving CT chest negative for PE LE US r/o dvt negative Prophylaxis: decreased lovenox to 40 mg bid Hyponatremia Mild will follow Mildly Elevated Creatinine JEN POA improved will recheck in AM hyperglycemia noted likely due to dexamethasone no h/o DM started suplemental insulin and hypoglycemia protocol as needed will need out pt f/up chest pain likely related to pneumonia negative trop - support oxygen need - f/up after pneumonia - consider stress test
[2021-09-11] MEDS: REMDESIVIR 100 MG in Sodium Chloride 0.9% 100 ML IV SCH (19:40)
[2021-09-11] MEDS: Zolpidem 5 MG Tab PO PRN (21:10)
[2021-09-12 07:41] LABS: ANION GAP 11.2 mEq/L (7-13); CHLORIDE,CL 109 mmol/L (98-107); SODIUM,NA 141 mmol/L (136-145)
[2021-09-12] MEDS: Multivitamins, Therapeutic with Minerals Tab PO SCH (08:49)
[2021-09-12] MEDS: Dexamethasone 6 MG TABLET PO SCH (08:49)
[2021-09-12] MEDS: Cholecalciferol (Vitamin D3) 25 MCG Tab PO SCH (08:49)
[2021-09-12] MEDS: Enoxaparin 40 MG/0.4 ML Syringe SUBCUT SCH ×2 (08:50→20:20)
[2021-09-12] MEDS: Insulin Lispro 100 Units/ML 3 ML Vial SUBCUT SCH ×4 (08:53→21:37)
[2021-09-12] MEDS: cefTRIAXone 1 GM in Sodium Chloride 0.9% 50 ML IV SCH (09:29)
[2021-09-12] MEDS: Azithromycin 500 MG in Sodium Chloride 0.9% 250 ML IV SCH (10:15)
--- NOTE | 2021-09-12 11:37 | PCM.PN ---
- General Info Date of Service: 09/12/21 Admission Dx/Problem (Free Text): Admission Diagnosis/Problem Admission Diagnosis/Problem Respiratory distress Subjective Update: continued to have moderate sob - better with oxygen, worse with activity requiring simple mask with 10-15 l/min quickly desats with NC oxygen duration of illness: days has cough, with yellow sputum no associated diarrhea but had loose BM Functional Status: Reports: Tolerating Diet, Ambulating (minimal in room) - Review of Systems General: Reports: Weakness. Denies: Fever Pulmonary: Reports: Shortness of Breath, Cough, Sputum Cardiovascular: Denies: Chest Pain, Palpitations Gastrointestinal: Denies: Abdominal Pain Neurological: Denies: Confusion - Patient Data Vitals - Most Recent: Last Vital Signs Temp 99.2 F 09/12/21 08:40 Pulse 90 09/12/21 08:40 Resp 20 09/12/21 08:40 BP 129/79 09/12/21 08:40 Pulse Ox 95 09/12/21 08:40 Weight - Most Recent: 209 lb 11.2 oz I&O - Last 24 Hours: Intake & Output 09/11/21 09/12/21 09/12/21 22:59 06:59 14:59 Intake Total 800 100 Balance 800 100 Lab Results Last 24 Hours: Laboratory Results - last 24 hr 09/11/21 09/11/21 09/11/21 Range/Units 11:27 16:54 21:16 WBC (5.0-10.0) 10^3/uL RBC (4.6-6.2) 10^6/uL Hgb (14.0-18.0) g/dL Hct (40.0-54.0) % MCV (80-100) fL MCH (27.0-34.0) pg MCHC (33.0-35.0) g/dL Plt Count (150-450) 10^3/uL Neut % (Auto) (42.2-75.2) % Lymph % (Auto) (20.5-50.1) % [place] % (Auto) (2-8) % Eos % (Auto) (1.0-3.0) % Baso % (Auto) (0.0-1.0) % Add Manual Diff D-Dimer, Quantitative (0-400) ng/mL Sodium (136-145) mmol/L Potassium (3.5-5.1) mmol/L Chloride (98-107) mmol/L Carbon Dioxide (21-32) mmol/L Anion Gap (7-13) mEq/L BUN (7-18) mg/dL Creatinine (0.70-1.30) mg/dL Est Cr Clr Drug Dosing mL/min Estimated GFR (MDRD) Glucose (70-99) mg/dL POC Glucose 166 H 140 H 165 H (70-99) mg/dL Calcium (8.5-10.1) mg/dL Total Bilirubin (0.2-1.0) mg/dL Direct Bilirubin (0.0-0.2) mg/dL Indirect Bilirubin AST (15-37) U/L ALT (16-63) U/L Alkaline Phosphatase (46-116) U/L Total Protein (6.4-8.2) g/dL Albumin (3.4-5.0) g/dL Globulin Albumin/Globulin Ratio 09/12/21 09/12/21 09/12/21 Range/Units 06:15 06:15 06:15 WBC 12.4 H (5.0-10.0) 10^3/uL RBC 4.26 L (4.6-6.2) 10^6/uL Hgb 13.6 L (14.0-18.0) g/dL Hct 40.3 (40.0-54.0) % MCV 94.6 (80-100) fL MCH 31.9 (27.0-34.0) pg MCHC 33.7 (33.0-35.0) g/dL Plt Count 358 (150-450) 10^3/uL Neut % (Auto) 81.2 H (42.2-75.2) % Lymph % (Auto) 11.5 L (20.5-50.1) % [place] % (Auto) 6.7 (2-8) % Eos % (Auto) 0.5 L (1.0-3.0) % Baso % (Auto) 0.1 (0.0-1.0) % Add Manual Diff D-Dimer, Quantitative 632 H (0-400) ng/mL Sodium 141 (136-145) mmol/L Potassium 4.2 (3.5-5.1) mmol/L Chloride 109 H (98-107) mmol/L Carbon Dioxide 25 (21-32) mmol/L Anion Gap 11.2 (7-13) mEq/L BUN 18 (7-18) mg/dL Creatinine 1.03 (0.70-1.30) mg/dL Est Cr Clr Drug Dosing 79.73 mL/min Estimated GFR (MDRD) > 60 Glucose 96 (70-99) mg/dL POC Glucose (70-99) mg/dL Calcium 8.3 L (8.5-10.1) mg/dL Total Bilirubin 0.7 (0.2-1.0) mg/dL Direct Bilirubin 0.1 (0.0-0.2) mg/dL Indirect Bilirubin 0.6 AST 199 H (15-37) U/L ALT 149 H (16-63) U/L Alkaline Phosphatase 64 (46-116) U/L Total Protein 6.4 (6.4-8.2) g/dL Albumin 2.3 L (3.4-5.0) g/dL Globulin 4.1 Albumin/Globulin Ratio 0.56 09/12/21 Range/Units 08:04 WBC (5.0-10.0) 10^3/uL RBC (4.6-6.2) 10^6/uL Hgb (14.0-18.0) g/dL Hct (40.0-54.0) % MCV (80-100) fL MCH (27.0-34.0) pg MCHC (33.0-35.0) g/dL Plt Count (150-450) 10^3/uL Neut % (Auto) (42.2-75.2) % Lymph % (Auto) (20.5-50.1) % [place] % (Auto) (2-8) % Eos % (Auto) (1.0-3.0) % Baso % (Auto) (0.0-1.0) % Add Manual Diff D-Dimer, Quantitative (0-400) ng/mL Sodium (136-145) mmol/L Potassium (3.5-5.1) mmol/L Chloride (98-107) mmol/L Carbon Dioxide (21-32) mmol/L Anion Gap (7-13) mEq/L BUN (7-18) mg/dL Creatinine (0.70-1.30) mg/dL Est Cr Clr Drug Dosing mL/min Estimated GFR (MDRD) Glucose (70-99) mg/dL POC Glucose 89 (70-99) mg/dL Calcium (8.5-10.1) mg/dL Total Bilirubin (0.2-1.0) mg/dL Direct Bilirubin (0.0-0.2) mg/dL Indirect Bilirubin AST (15-37) U/L ALT (16-63) U/L Alkaline Phosphatase (46-116) U/L Total Protein (6.4-8.2) g/dL Albumin (3.4-5.0) g/dL Globulin Albumin/Globulin Ratio Olman Results Last 24 Hours: Microbiology 09/08/21 14:26 Aerobic Blood Culture - Preliminary Blood - Venous - Lab Draw NO GROWTH AFTER 3 DAYS Anaerobic Blood Culture - Preliminary NO GROWTH AFTER 3 DAYS 09/08/21 14:24 Aerobic Blood Culture - Preliminary Blood - Arm, Left NO GROWTH AFTER 3 DAYS Anaerobic Blood Culture - Preliminary NO GROWTH AFTER 3 DAYS Med Orders - Current: Current Medications Acetaminophen (Acetaminophen 325 Mg Tab) 650 mg PO Q4H PRN PRN Reason: Pain (Mild 1-3)/fever Last Admin: 09/11/21 21:10 Dose: 650 mg Documented by: Cholecalciferol (Cholecalciferol (Vitamin D3) 25 Mcg Tab) 25 mcg PO DAILY [facility] Last Admin: 09/12/21 08:49 Dose: 25 mcg Documented by: Dexamethasone (Dexamethasone 6 Mg Tablet) 6 mg PO DAILY@0800 [facility] Last Admin: 09/12/21 08:49 Dose: 6 mg Documented by: Dextrose/Water (50% Dextrose In Water 50 Ml Syringe) 25 ml IVPUSH ASDIRECTED PRN PRN Reason: Hypoglycemia BS<70 Docusate Sodium (Docusate Sodium 100 Mg Cap) 100 mg PO BID PRN PRN Reason: Constipation Enoxaparin Sodium (Enoxaparin 40 Mg/0.4 Ml Syringe) 40 mg SUBCUT BID [facility] Last Admin: 09/12/21 08:50 Dose: 40 mg Documented by: Remdesivir 100 mg/ Sodium (Chloride) 100 mls @ 100 mls/hr IV Q24H [facility] Stop: 09/12/21 20:59 Last Admin: 09/11/21 19:40 Dose: 100 mls/hr Documented by: Ceftriaxone Sodium 1 gm/ (Sodium Chloride) 50 mls @ 100 mls/hr IV Q24H [facility] Last Infusion: 09/12/21 10:14 Dose: Infused Documented by: Azithromycin 500 mg/ Sodium (Chloride) 250 mls @ 250 mls/hr IV Q24H [facility] Last Admin: 09/12/21 10:15 Dose: 250 mls/hr Documented by: Insulin Human Lispro (Insulin Lispro 100 Units/Ml 3 Ml Vial) 0 unit SUBCUT WITHMEALSANDBED [facility]; Protocol Last Admin: 09/12/21 08:53 Dose: Not Given Documented by: Multivitamins/Minerals (Multivitamins, Therapeutic With Minerals Tab) 1 tab PO WITHBREAKFAST [facility] Last Admin: 09/12/21 08:49 Dose: 1 tab Documented by: Ondansetron HCl (Ondansetron 4 Mg/2 Ml Sdv) 4 mg IVPUSH Q4H PRN PRN Reason: Nausea/Vomiting Sodium Chloride (Sodium Chloride 0.9% 10 Ml Syringe) 10 ml FLUSH ASDIRECTED PRN PRN Reason: Keep Vein Open Zolpidem Tartrate (Zolpidem 5 Mg Tab) 10 mg PO BEDTIME PRN PRN Reason: Sleep Last Admin: 09/11/21 21:10 Dose: 10 mg Documented by: Discontinued Medications Diphenhydramine HCl (Diphenhydramine 50 Mg Cap) 50 mg PO ONETIME ONE Stop: 09/10/21 00:03 Last Admin: 09/10/21 00:16 Dose: 50 mg Documented by: Enoxaparin Sodium (Enoxaparin 100 Mg/1 Ml Syringe) 100 mg SUBCUT BID [facility] Last Admin: 09/10/21 08:36 Dose: 100 mg Documented by: Remdesivir 200 mg/ Sodium (Chloride) 250 mls @ 250 mls/hr IV ONETIME ONE Stop: 09/08/21 20:57 Last Admin: 09/08/21 20:43 Dose: 250 mls/hr Documented by: Iopamidol (Iopamidol 755 Mg/Ml 100 Ml Bottle) 100 ml IVPUSH ONETIME ONE Stop: 09/08/21 15:44 Last Admin: 09/08/21 16:37 Dose: 79 ml Documented by: Zolpidem Tartrate (Zolpidem 5 Mg Tab) 5 mg PO BEDTIME PRN PRN Reason: Sleep Last Admin: 09/09/21 23:00 Dose: 5 mg Documented by: - Exam Quality Assessment: Supplemental Oxygen General: Alert, Oriented Neck: Supple Lungs: Normal Respiratory Effort, Rhonchi Cardiovascular: Regular Rate, Regular Rhythm GI/Abdominal Exam: Normal Bowel Sounds, Soft, Non-Tender Extremities: No Pedal Edema Skin: Warm Neurological: No New Focal Deficit Psy/Mental Status: Alert, Normal Affect, Normal Mood - Patient Data Lab Results Last 24 hrs: Laboratory Results - last 24 hr 09/11/21 09/11/21 09/11/21 Range/Units 11:27 16:54 21:16 WBC (5.0-10.0) 10^3/uL RBC (4.6-6.2) 10^6/uL Hgb (14.0-18.0) g/dL Hct (40.0-54.0) % MCV (80-100) fL MCH (27.0-34.0) pg MCHC (33.0-35.0) g/dL Plt Count (150-450) 10^3/uL Neut % (Auto) (42.2-75.2) % Lymph % (Auto) (20.5-50.1) % [place] % (Auto) (2-8) % Eos % (Auto) (1.0-3.0) % Baso % (Auto) (0.0-1.0) % Add Manual Diff D-Dimer, Quantitative (0-400) ng/mL Sodium (136-145) mmol/L Potassium (3.5-5.1) mmol/L Chloride (98-107) mmol/L Carbon Dioxide (21-32) mmol/L Anion Gap (7-13) mEq/L BUN (7-18) mg/dL Creatinine (0.70-1.30) mg/dL Est Cr Clr Drug Dosing mL/min Estimated GFR (MDRD) Glucose (70-99) mg/dL POC Glucose 166 H 140 H 165 H (70-99) mg/dL Calcium (8.5-10.1) mg/dL Total Bilirubin (0.2-1.0) mg/dL Direct Bilirubin (0.0-0.2) mg/dL Indirect Bilirubin AST (15-37) U/L ALT (16-63) U/L Alkaline Phosphatase (46-116) U/L Total Protein (6.4-8.2) g/dL Albumin (3.4-5.0) g/dL Globulin Albumin/Globulin Ratio 09/12/21 09/12/21 09/12/21 Range/Units 06:15 06:15 06:15 WBC 12.4 H (5.0-10.0) 10^3/uL RBC 4.26 L (4.6-6.2) 10^6/uL Hgb 13.6 L (14.0-18.0) g/dL Hct 40.3 (40.0-54.0) % MCV 94.6 (80-100) fL MCH 31.9 (27.0-34.0) pg MCHC 33.7 (33.0-35.0) g/dL Plt Count 358 (150-450) 10^3/uL Neut % (Auto) 81.2 H (42.2-75.2) % Lymph % (Auto) 11.5 L (20.5-50.1) % [place] % (Auto) 6.7 (2-8) % Eos % (Auto) 0.5 L (1.0-3.0) % Baso % (Auto) 0.1 (0.0-1.0) % Add Manual Diff D-Dimer, Quantitative 632 H (0-400) ng/mL Sodium 141 (136-145) mmol/L Potassium 4.2 (3.5-5.1) mmol/L Chloride 109 H (98-107) mmol/L Carbon Dioxide 25 (21-32) mmol/L Anion Gap 11.2 (7-13) mEq/L BUN 18 (7-18) mg/dL Creatinine 1.03 (0.70-1.30) mg/dL Est Cr Clr Drug Dosing 79.73 mL/min Estimated GFR (MDRD) > 60 Glucose 96 (70-99) mg/dL POC Glucose (70-99) mg/dL Calcium 8.3 L (8.5-10.1) mg/dL Total Bilirubin 0.7 (0.2-1.0) mg/dL Direct Bilirubin 0.1 (0.0-0.2) mg/dL Indirect Bilirubin 0.6 AST 199 H (15-37) U/L ALT 149 H (16-63) U/L Alkaline Phosphatase 64 (46-116) U/L Total Protein 6.4 (6.4-8.2) g/dL Albumin 2.3 L (3.4-5.0) g/dL Globulin 4.1 Albumin/Globulin Ratio 0.56 09/12/21 Range/Units 08:04 WBC (5.0-10.0) 10^3/uL RBC (4.6-6.2) 10^6/uL Hgb (14.0-18.0) g/dL Hct (40.0-54.0) % MCV (80-100) fL MCH (27.0-34.0) pg MCHC (33.0-35.0) g/dL Plt Count (150-450) 10^3/uL Neut % (Auto) (42.2-75.2) % Lymph % (Auto) (20.5-50.1) % [place] % (Auto) (2-8) % Eos % (Auto) (1.0-3.0) % Baso % (Auto) (0.0-1.0) % Add Manual Diff D-Dimer, Quantitative (0-400) ng/mL Sodium (136-145) mmol/L Potassium (3.5-5.1) mmol/L Chloride (98-107) mmol/L Carbon Dioxide (21-32) mmol/L Anion Gap (7-13) mEq/L BUN (7-18) mg/dL Creatinine (0.70-1.30) mg/dL Est Cr Clr Drug Dosing mL/min Estimated GFR (MDRD) Glucose (70-99) mg/dL POC Glucose 89 (70-99) mg/dL Calcium (8.5-10.1) mg/dL Total Bilirubin (0.2-1.0) mg/dL Direct Bilirubin (0.0-0.2) mg/dL Indirect Bilirubin AST (15-37) U/L ALT (16-63) U/L Alkaline Phosphatase (46-116) U/L Total Protein (6.4-8.2) g/dL Albumin (3.4-5.0) g/dL Globulin Albumin/Globulin Ratio Result Diagrams: 09/12/21 06:15 09/12/21 06:15 Olman Results Last 24 hrs: Microbiology 09/08/21 14:26 Aerobic Blood Culture - Preliminary Blood - Venous - Lab Draw NO GROWTH AFTER 3 DAYS Anaerobic Blood Culture - Preliminary NO GROWTH AFTER 3 DAYS 09/08/21 14:24 Aerobic Blood Culture - Preliminary Blood - Arm, Left NO GROWTH AFTER 3 DAYS Anaerobic Blood Culture - Preliminary NO GROWTH AFTER 3 DAYS Sepsis Event Note - Evaluation Sepsis Screening Result: No Definite Risk - Focused Exam Vital Signs: Vital Signs Temp Pulse Resp BP BP Pulse Ox 09/12/21 08:40 99.2 F 90 20 129/79 95 09/12/21 04:00 98.0 F 109 H 24 H 114/75 84 L 09/12/21 00:00 97.9 F 85 22 H 112/76 94 L - Problem List & Annotations (1) Pneumonia due to COVID-19 virus SNOMED Code(s): 715771600956296690 Code(s): U07.1 - COVID-19; J12.82 - PNEUMONIA DUE TO CORONAVIRUS DISEASE 2019 Status: Acute Current Visit: Yes (2) COVID SNOMED Code(s): 293202877 Code(s): U07.1 - COVID-19 Status: Acute Current Visit: No (3) Hypoxia SNOMED Code(s): 179579379 Code(s): R09.02 - HYPOXEMIA Status: Acute Current Visit: No - Problem List Review Problem List Initiated/Reviewed/Updated: Yes - My Orders Last 24 Hours: My Active Orders 09/13/21 05:11 BASIC METABOLIC PANEL,BMP [CHEM] AM CBC WITH AUTO DIFF [HEME] AM HEPATIC FUNCTION PANEL,HFP [CHEM] AM 09/14/21 05:11 BASIC METABOLIC PANEL,BMP [CHEM] AM CBC WITH AUTO DIFF [HEME] AM HEPATIC FUNCTION PANEL,HFP [CHEM] AM 09/15/21 05:11 BASIC METABOLIC PANEL,BMP [CHEM] AM HEPATIC FUNCTION PANEL,HFP [CHEM] AM 09/16/21 05:11 BASIC METABOLIC PANEL,BMP [CHEM] AM - Plan Plan:: Acute hypoxemic respiratory failure Will supplement oxygen as needed Acute covid 19 pneumonia Vaccination status: unvaccinated Symptom onset: about 09/04/21 Covid test positive: 09/07/21 Treat with dexamethasone Treat with remdesivir - LFTs are up - will finish remdesivir today Treat with mvi /vit d Follow daily cbc, bmp, trop, procal, ddimer Evaluations for concurrent bacterial pneumonia: Procalcitonin: low earlier continued leukocytosis - improved c/o thick sputum started azithro, ceftriaxone for possible community acquired pneumonia follow procal Evaluations for thrombotic complications Ddimer: increased but improving CT chest negative for PE LE US r/o dvt negative Prophylaxis: decreased lovenox to 40 mg bid Hyponatremia Mild will follow Mildly Elevated Creatinine JEN POA improved will recheck in AM hyperglycemia noted likely due to dexamethasone no h/o DM started supplemental insulin and hypoglycemia protocol as needed will need out pt f/up chest pain likely related to pneumonia negative trop - support oxygen need - f/up after pneumonia - consider stress test
[2021-09-12] MEDS: Pantoprazole 40 MG Tab.CR PO SCH (13:34)
[2021-09-12] MEDS: REMDESIVIR 100 MG in Sodium Chloride 0.9% 100 ML IV SCH (20:12)
[2021-09-12] MEDS: Sodium Chloride 0.9% 10 ML Syringe FLUSH PRN ×2 (20:13→21:40)
[2021-09-12] MEDS: Zolpidem 5 MG Tab PO PRN (21:43)
[2021-09-13] MEDS: Pantoprazole 40 MG Tab.CR PO SCH (05:50)
[2021-09-13 07:11] LABS: ANION GAP 12.1 mEq/L (7-13); CHLORIDE,CL 106 mmol/L (98-107); SODIUM,NA 139 mmol/L (136-145)
[2021-09-13] MEDS: Insulin Lispro 100 Units/ML 3 ML Vial SUBCUT SCH ×4 (08:11→21:47)
[2021-09-13] MEDS: Enoxaparin 40 MG/0.4 ML Syringe SUBCUT SCH ×2 (08:11→21:51)
[2021-09-13] MEDS: Multivitamins, Therapeutic with Minerals Tab PO SCH (08:12)
[2021-09-13] MEDS: Dexamethasone 6 MG TABLET PO SCH (08:12)
[2021-09-13] MEDS: Cholecalciferol (Vitamin D3) 25 MCG Tab PO SCH (08:12)
[2021-09-13] MEDS: Sodium Chloride 0.9% 10 ML Syringe FLUSH PRN ×3 (08:15→10:39)
[2021-09-13] MEDS: cefTRIAXone 1 GM in Sodium Chloride 0.9% 50 ML IV SCH (09:31)
[2021-09-13] MEDS: Azithromycin 500 MG in Sodium Chloride 0.9% 250 ML IV SCH (10:35)
--- NOTE | 2021-09-13 12:00 | PCM.PN ---
- General Info Date of Service: 09/13/21 Admission Dx/Problem (Free Text): Admission Diagnosis/Problem Admission Diagnosis/Problem Respiratory distress Subjective Update: continued to have moderate sob - better with oxygen, worse with activity requiring simple mask with 10-15 l/min - desats quickly without it duration of illness: days has cough, with yellow-green sputum Functional Status: Reports: Pain Controlled, Tolerating Diet, Ambulating (in room) - Review of Systems General: Denies: Fever, Weakness Pulmonary: Reports: Shortness of Breath, Cough, Sputum. Denies: Hemoptysis Cardiovascular: Denies: Chest Pain Gastrointestinal: Denies: Abdominal Pain Genitourinary: Denies: Dysuria Neurological: Denies: Confusion - Patient Data Vitals - Most Recent: Last Vital Signs Temp 97.8 F 09/13/21 08:17 Pulse 75 09/13/21 08:17 Resp 20 09/13/21 08:17 BP 116/71 09/13/21 08:17 Pulse Ox 96 09/13/21 08:17 Weight - Most Recent: 209 lb 11.2 oz I&O - Last 24 Hours: Intake & Output 09/12/21 09/13/21 09/13/21 22:59 06:59 14:59 Intake Total 400 100 Balance 400 100 Lab Results Last 24 Hours: Laboratory Results - last 24 hr 09/11/21 09/12/21 09/12/21 Range/Units 06:35 15:42 21:32 WBC (5.0-10.0) 10^3/uL RBC (4.6-6.2) 10^6/uL Hgb (14.0-18.0) g/dL Hct (40.0-54.0) % MCV (80-100) fL MCH (27.0-34.0) pg MCHC (33.0-35.0) g/dL Plt Count (150-450) 10^3/uL Neut % (Auto) (42.2-75.2) % Lymph % (Auto) (20.5-50.1) % [place] % (Auto) (2-8) % Eos % (Auto) (1.0-3.0) % Baso % (Auto) (0.0-1.0) % Add Manual Diff Sodium (136-145) mmol/L Potassium (3.5-5.1) mmol/L Chloride (98-107) mmol/L Carbon Dioxide (21-32) mmol/L Anion Gap (7-13) mEq/L BUN (7-18) mg/dL Creatinine (0.70-1.30) mg/dL Est Cr Clr Drug Dosing mL/min Estimated GFR (MDRD) Glucose (70-99) mg/dL POC Glucose 170 H 195 H (70-99) mg/dL Calcium (8.5-10.1) mg/dL Total Bilirubin (0.2-1.0) mg/dL Direct Bilirubin (0.0-0.2) mg/dL Indirect Bilirubin AST (15-37) U/L ALT (16-63) U/L Alkaline Phosphatase (46-116) U/L Total Protein (6.4-8.2) g/dL Albumin (3.4-5.0) g/dL Globulin Albumin/Globulin Ratio Procalcitonin 0.09 ng/mL 09/13/21 09/13/21 09/13/21 Range/Units 06:35 06:35 08:08 WBC 11.3 H (5.0-10.0) 10^3/uL RBC 3.88 L (4.6-6.2) 10^6/uL Hgb 12.5 L (14.0-18.0) g/dL Hct 36.2 L (40.0-54.0) % MCV 93.3 (80-100) fL MCH 32.2 (27.0-34.0) pg MCHC 34.5 (33.0-35.0) g/dL Plt Count 395 (150-450) 10^3/uL Neut % (Auto) 80.5 H (42.2-75.2) % Lymph % (Auto) 11.6 L (20.5-50.1) % [place] % (Auto) 6.8 (2-8) % Eos % (Auto) 1.0 (1.0-3.0) % Baso % (Auto) 0.1 (0.0-1.0) % Add Manual Diff Sodium 139 (136-145) mmol/L Potassium 4.1 (3.5-5.1) mmol/L Chloride 106 (98-107) mmol/L Carbon Dioxide 25 (21-32) mmol/L Anion Gap 12.1 (7-13) mEq/L BUN 18 (7-18) mg/dL Creatinine 0.88 (0.70-1.30) mg/dL Est Cr Clr Drug Dosing 93.32 mL/min Estimated GFR (MDRD) > 60 Glucose 117 H (70-99) mg/dL POC Glucose 105 H (70-99) mg/dL Calcium 8.1 L (8.5-10.1) mg/dL Total Bilirubin 0.6 (0.2-1.0) mg/dL Direct Bilirubin 0.2 (0.0-0.2) mg/dL Indirect Bilirubin 0.4 AST 91 H (15-37) U/L ALT 119 H (16-63) U/L Alkaline Phosphatase 54 (46-116) U/L Total Protein 6.2 L (6.4-8.2) g/dL Albumin 2.1 L (3.4-5.0) g/dL Globulin 4.1 Albumin/Globulin Ratio 0.51 Procalcitonin ng/mL [facility] Results Last 24 Hours: Microbiology 09/08/21 14:26 Aerobic Blood Culture - Preliminary Blood - Venous - Lab Draw NO GROWTH AFTER 4 DAYS Anaerobic Blood Culture - Preliminary NO GROWTH AFTER 4 DAYS 09/08/21 14:24 Aerobic Blood Culture - Preliminary Blood - Arm, Left NO GROWTH AFTER 4 DAYS Anaerobic Blood Culture - Preliminary NO GROWTH AFTER 4 DAYS Med Orders - Current: Current Medications Acetaminophen (Acetaminophen 325 Mg Tab) 650 mg PO Q4H PRN PRN Reason: Pain (Mild 1-3)/fever Last Admin: 09/11/21 21:10 Dose: 650 mg Documented by: Cholecalciferol (Cholecalciferol (Vitamin D3) 25 Mcg Tab) 25 mcg PO DAILY [facility] Last Admin: 09/13/21 08:12 Dose: 25 mcg Documented by: Dexamethasone (Dexamethasone 6 Mg Tablet) 6 mg PO DAILY@0800 [facility] Last Admin: 09/13/21 08:12 Dose: 6 mg Documented by: Dextrose/Water (50% Dextrose In Water 50 Ml Syringe) 25 ml IVPUSH ASDIRECTED PRN PRN Reason: Hypoglycemia BS<70 Docusate Sodium (Docusate Sodium 100 Mg Cap) 100 mg PO BID PRN PRN Reason: Constipation Enoxaparin Sodium (Enoxaparin 40 Mg/0.4 Ml Syringe) 40 mg SUBCUT BID [facility] Last Admin: 09/13/21 08:11 Dose: 40 mg Documented by: Ceftriaxone Sodium 1 gm/ (Sodium Chloride) 50 mls @ 100 mls/hr IV Q24H [facility] Last Infusion: 09/13/21 10:25 Dose: Infused Documented by: Azithromycin 500 mg/ Sodium (Chloride) 250 mls @ 250 mls/hr IV Q24H [facility] Last Admin: 09/13/21 10:35 Dose: 250 mls/hr Documented by: Insulin Human Lispro (Insulin Lispro 100 Units/Ml 3 Ml Vial) 0 unit SUBCUT WITHMEALSANDBED [facility]; Protocol Last Admin: 09/13/21 08:11 Dose: Not Given Documented by: Multivitamins/Minerals (Multivitamins, Therapeutic With Minerals Tab) 1 tab PO WITHBREAKFAST [facility] Last Admin: 09/13/21 08:12 Dose: 1 tab Documented by: Ondansetron HCl (Ondansetron 4 Mg/2 Ml Sdv) 4 mg IVPUSH Q4H PRN PRN Reason: Nausea/Vomiting Pantoprazole Sodium (Pantoprazole 40 Mg Tab.Cr) 40 mg PO ACBREAKFAST [facility] Last Admin: 09/13/21 05:50 Dose: 40 mg Documented by: Sodium Chloride (Sodium Chloride 0.9% 10 Ml Syringe) 10 ml FLUSH ASDIRECTED PRN PRN Reason: Keep Vein Open Last Admin: 09/13/21 10:39 Dose: 10 ml Documented by: Zolpidem Tartrate (Zolpidem 5 Mg Tab) 10 mg PO BEDTIME PRN PRN Reason: Sleep Last Admin: 09/12/21 21:43 Dose: 10 mg Documented by: Discontinued Medications Diphenhydramine HCl (Diphenhydramine 50 Mg Cap) 50 mg PO ONETIME ONE Stop: 09/10/21 00:03 Last Admin: 09/10/21 00:16 Dose: 50 mg Documented by: Enoxaparin Sodium (Enoxaparin 100 Mg/1 Ml Syringe) 100 mg SUBCUT BID [facility] Last Admin: 09/10/21 08:36 Dose: 100 mg Documented by: Remdesivir 200 mg/ Sodium (Chloride) 250 mls @ 250 mls/hr IV ONETIME ONE Stop: 09/08/21 20:57 Last Admin: 09/08/21 20:43 Dose: 250 mls/hr Documented by: Remdesivir 100 mg/ Sodium (Chloride) 100 mls @ 100 mls/hr IV Q24H [facility] Stop: 09/12/21 20:59 Last Infusion: 09/12/21 21:42 Dose: Infused Documented by: Iopamidol (Iopamidol 755 Mg/Ml 100 Ml Bottle) 100 ml IVPUSH ONETIME ONE Stop: 09/08/21 15:44 Last Admin: 09/08/21 16:37 Dose: 79 ml Documented by: Zolpidem Tartrate (Zolpidem 5 Mg Tab) 5 mg PO BEDTIME PRN PRN Reason: Sleep Last Admin: 09/09/21 23:00 Dose: 5 mg Documented by: - Exam General: Alert, Oriented Neck: Supple Lungs: Normal Respiratory Effort, Rhonchi Cardiovascular: Regular Rate, Regular Rhythm GI/Abdominal Exam: Normal Bowel Sounds, Soft, Non-Tender Extremities: No Pedal Edema - Patient Data Lab Results Last 24 hrs: Laboratory Results - last 24 hr 09/11/21 09/12/21 09/12/21 Range/Units 06:35 15:42 21:32 WBC (5.0-10.0) 10^3/uL RBC (4.6-6.2) 10^6/uL Hgb (14.0-18.0) g/dL Hct (40.0-54.0) % MCV (80-100) fL MCH (27.0-34.0) pg MCHC (33.0-35.0) g/dL Plt Count (150-450) 10^3/uL Neut % (Auto) (42.2-75.2) % Lymph % (Auto) (20.5-50.1) % [place] % (Auto) (2-8) % Eos % (Auto) (1.0-3.0) % Baso % (Auto) (0.0-1.0) % Add Manual Diff Sodium (136-145) mmol/L Potassium (3.5-5.1) mmol/L Chloride (98-107) mmol/L Carbon Dioxide (21-32) mmol/L Anion Gap (7-13) mEq/L BUN (7-18) mg/dL Creatinine (0.70-1.30) mg/dL Est Cr Clr Drug Dosing mL/min Estimated GFR (MDRD) Glucose (70-99) mg/dL POC Glucose 170 H 195 H (70-99) mg/dL Calcium (8.5-10.1) mg/dL Total Bilirubin (0.2-1.0) mg/dL Direct Bilirubin (0.0-0.2) mg/dL Indirect Bilirubin AST (15-37) U/L ALT (16-63) U/L Alkaline Phosphatase (46-116) U/L Total Protein (6.4-8.2) g/dL Albumin (3.4-5.0) g/dL Globulin Albumin/Globulin Ratio Procalcitonin 0.09 ng/mL 09/13/21 09/13/21 09/13/21 Range/Units 06:35 06:35 08:08 WBC 11.3 H (5.0-10.0) 10^3/uL RBC 3.88 L (4.6-6.2) 10^6/uL Hgb 12.5 L (14.0-18.0) g/dL Hct 36.2 L (40.0-54.0) % MCV 93.3 (80-100) fL MCH 32.2 (27.0-34.0) pg MCHC 34.5 (33.0-35.0) g/dL Plt Count 395 (150-450) 10^3/uL Neut % (Auto) 80.5 H (42.2-75.2) % Lymph % (Auto) 11.6 L (20.5-50.1) % [place] % (Auto) 6.8 (2-8) % Eos % (Auto) 1.0 (1.0-3.0) % Baso % (Auto) 0.1 (0.0-1.0) % Add Manual Diff Sodium 139 (136-145) mmol/L Potassium 4.1 (3.5-5.1) mmol/L Chloride 106 (98-107) mmol/L Carbon Dioxide 25 (21-32) mmol/L Anion Gap 12.1 (7-13) mEq/L BUN 18 (7-18) mg/dL Creatinine 0.88 (0.70-1.30) mg/dL Est Cr Clr Drug Dosing 93.32 mL/min Estimated GFR (MDRD) > 60 Glucose 117 H (70-99) mg/dL POC Glucose 105 H (70-99) mg/dL Calcium 8.1 L (8.5-10.1) mg/dL Total Bilirubin 0.6 (0.2-1.0) mg/dL Direct Bilirubin 0.2 (0.0-0.2) mg/dL Indirect Bilirubin 0.4 AST 91 H (15-37) U/L ALT 119 H (16-63) U/L Alkaline Phosphatase 54 (46-116) U/L Total Protein 6.2 L (6.4-8.2) g/dL Albumin 2.1 L (3.4-5.0) g/dL Globulin 4.1 Albumin/Globulin Ratio 0.51 Procalcitonin ng/mL Result Diagrams: 09/13/21 06:35 09/13/21 06:35 [facility] Results Last 24 hrs: Microbiology 09/08/21 14:26 Aerobic Blood Culture - Preliminary Blood - Venous - Lab Draw NO GROWTH AFTER 4 DAYS Anaerobic Blood Culture - Preliminary NO GROWTH AFTER 4 DAYS 09/08/21 14:24 Aerobic Blood Culture - Preliminary Blood - Arm, Left NO GROWTH AFTER 4 DAYS Anaerobic Blood Culture - Preliminary NO GROWTH AFTER 4 DAYS Sepsis Event Note - Evaluation Sepsis Screening Result: No Definite Risk - Focused Exam Vital Signs: Vital Signs Temp Pulse Resp BP Pulse Ox 09/13/21 08:17 97.8 F 75 20 116/71 96 09/13/21 05:30 98.5 F 78 20 115/80 94 L - Problem List & Annotations (1) Pneumonia due to COVID-19 virus SNOMED Code(s): 505864217563844099 Code(s): U07.1 - COVID-19; J12.82 - PNEUMONIA DUE TO CORONAVIRUS DISEASE 2019 Status: Acute Current Visit: Yes (2) COVID SNOMED Code(s): 300142249 Code(s): U07.1 - COVID-19 Status: Acute Current Visit: No (3) Hypoxia SNOMED Code(s): 785034486 Code(s): R09.02 - HYPOXEMIA Status: Acute Current Visit: No - Problem List Review Problem List Initiated/Reviewed/Updated: Yes - My Orders Last 24 Hours: My Active Orders 09/12/21 13:00 Pantoprazole [ProTONIX] 40 mg PO ACBREAKFAST 09/14/21 05:11 BASIC METABOLIC PANEL,BMP [CHEM] AM CBC WITH AUTO DIFF [HEME] AM D-DIMER QUANTITATIVE [COAG] AM HEPATIC FUNCTION PANEL,HFP [CHEM] AM 09/15/21 05:11 BASIC METABOLIC PANEL,BMP [CHEM] AM D-DIMER QUANTITATIVE [COAG] AM HEPATIC FUNCTION PANEL,HFP [CHEM] AM 09/16/21 05:11 BASIC METABOLIC PANEL,BMP [CHEM] AM D-DIMER QUANTITATIVE [COAG] AM 09/17/21 05:11 D-DIMER QUANTITATIVE [COAG] AM 09/18/21 05:11 D-DIMER QUANTITATIVE [COAG] AM - Plan Plan:: Acute hypoxemic respiratory failure Will supplement oxygen as needed Acute covid 19 pneumonia Vaccination status: unvaccinated Symptom onset: about 09/04/21 Covid test positive: 09/07/21 Treat with dexamethasone Treated with remdesivir Treat with mvi /vit d Follow daily cbc, bmp, trop, procal, ddimer Evaluations for concurrent bacterial infection: Procalcitonin: low continued leukocytosis - improved c/o thick sputum started azithro, ceftriaxone for possible community acquired pneumonia - leukocytosis is better but still discolored sputum follow procal Evaluations for thrombotic complications Ddimer: increased but improving CT chest negative for PE LE US r/o dvt negative Prophylaxis: decreased lovenox to 40 mg bid Hyponatremia Mild will follow Mildly Elevated Creatinine JEN POA improved will recheck in AM hyperglycemia noted likely due to dexamethasone no h/o DM started supplemental insulin and hypoglycemia protocol as needed will need out pt f/up chest pain likely related to pneumonia resolved negative trop - support oxygen need - f/up after pneumonia - consider stress test as out pt when respiratory status is good
[2021-09-13] MEDS: Zolpidem 5 MG Tab PO PRN (21:52)
[2021-09-14] MEDS: Pantoprazole 40 MG Tab.CR PO SCH (05:33)
[2021-09-14 07:18] LABS: ANION GAP 12.3 mEq/L (7-13); CHLORIDE,CL 106 mmol/L (98-107); SODIUM,NA 139 mmol/L (136-145)
[2021-09-14] MEDS: Enoxaparin 40 MG/0.4 ML Syringe SUBCUT SCH (09:08)
[2021-09-14] MEDS: Dexamethasone 6 MG TABLET PO SCH (09:09)
[2021-09-14] MEDS: Cholecalciferol (Vitamin D3) 25 MCG Tab PO SCH (09:09)
[2021-09-14] MEDS: Insulin Lispro 100 Units/ML 3 ML Vial SUBCUT SCH ×4 (09:11→20:55)
[2021-09-14] MEDS: cefTRIAXone 1 GM in Sodium Chloride 0.9% 50 ML IV SCH (09:19)
[2021-09-14] MEDS: Azithromycin 500 MG in Sodium Chloride 0.9% 250 ML IV SCH (10:00)
--- NOTE | 2021-09-14 11:56 | PCM.PN ---
- General Info Date of Service: 09/14/21 Admission Dx/Problem (Free Text): Admission Diagnosis/Problem Admission Diagnosis/Problem Respiratory distress Subjective Update: continued to have moderate sob - better with oxygen, worse with activity requiring simple mask with 10-15 l/min duration of illness: days has cough, with epsiodes of yellow-green sputum Functional Status: Reports: Tolerating Diet - Review of Systems General: Reports: Weakness Pulmonary: Reports: Shortness of Breath, Cough Cardiovascular: Denies: Chest Pain, Edema Neurological: Denies: Confusion - Patient Data Vitals - Most Recent: Last Vital Signs Temp 96.9 F 09/14/21 08:00 Pulse 85 09/14/21 08:00 Resp 20 09/14/21 08:00 BP 103/67 09/14/21 05:34 Pulse Ox 86 L 09/14/21 08:00 Weight - Most Recent: 209 lb 11.2 oz I&O - Last 24 Hours: Intake & Output 09/13/21 09/14/21 09/14/21 22:59 06:59 14:59 Intake Total 100 100 Balance 100 100 Lab Results Last 24 Hours: Laboratory Results - last 24 hr 09/13/21 09/13/21 09/13/21 Range/Units 12:14 17:13 20:37 WBC (5.0-10.0) 10^3/uL RBC (4.6-6.2) 10^6/uL Hgb (14.0-18.0) g/dL Hct (40.0-54.0) % MCV (80-100) fL MCH (27.0-34.0) pg MCHC (33.0-35.0) g/dL Plt Count (150-450) 10^3/uL Neut % (Auto) (42.2-75.2) % Lymph % (Auto) (20.5-50.1) % Barbour % (Auto) (2-8) % Eos % (Auto) (1.0-3.0) % Baso % (Auto) (0.0-1.0) % D-Dimer, Quantitative (0-400) ng/mL Sodium (136-145) mmol/L Potassium (3.5-5.1) mmol/L Chloride (98-107) mmol/L Carbon Dioxide (21-32) mmol/L Anion Gap (7-13) mEq/L BUN (7-18) mg/dL Creatinine (0.70-1.30) mg/dL Est Cr Clr Drug Dosing mL/min Estimated GFR (MDRD) Glucose (70-99) mg/dL POC Glucose 174 H 230 H 218 H (70-99) mg/dL Calcium (8.5-10.1) mg/dL Total Bilirubin (0.2-1.0) mg/dL Direct Bilirubin (0.0-0.2) mg/dL Indirect Bilirubin AST (15-37) U/L ALT (16-63) U/L Alkaline Phosphatase (46-116) U/L Total Protein (6.4-8.2) g/dL Albumin (3.4-5.0) g/dL Globulin Albumin/Globulin Ratio 09/14/21 09/14/21 09/14/21 Range/Units 06:30 06:38 06:38 WBC 12.0 H (5.0-10.0) 10^3/uL RBC 4.17 L (4.6-6.2) 10^6/uL Hgb 13.3 L (14.0-18.0) g/dL Hct 39.3 L (40.0-54.0) % MCV 94.2 (80-100) fL MCH 31.9 (27.0-34.0) pg MCHC 33.8 (33.0-35.0) g/dL Plt Count 405 (150-450) 10^3/uL Neut % (Auto) 79.2 H (42.2-75.2) % Lymph % (Auto) 10.1 L (20.5-50.1) % Barbour % (Auto) 9.8 H (2-8) % Eos % (Auto) 0.8 L (1.0-3.0) % Baso % (Auto) 0.1 (0.0-1.0) % D-Dimer, Quantitative 3280 H (0-400) ng/mL Sodium 139 (136-145) mmol/L Potassium 4.3 (3.5-5.1) mmol/L Chloride 106 (98-107) mmol/L Carbon Dioxide 25 (21-32) mmol/L Anion Gap 12.3 (7-13) mEq/L BUN 19 H (7-18) mg/dL Creatinine 0.84 (0.70-1.30) mg/dL Est Cr Clr Drug Dosing 97.76 mL/min Estimated GFR (MDRD) > 60 Glucose 120 H (70-99) mg/dL POC Glucose (70-99) mg/dL Calcium 8.0 L (8.5-10.1) mg/dL Total Bilirubin 0.5 (0.2-1.0) mg/dL Direct Bilirubin 0.2 (0.0-0.2) mg/dL Indirect Bilirubin 0.3 AST 42 H (15-37) U/L ALT 85 H (16-63) U/L Alkaline Phosphatase 58 (46-116) U/L Total Protein 6.3 L (6.4-8.2) g/dL Albumin 2.0 L (3.4-5.0) g/dL Globulin 4.3 Albumin/Globulin Ratio 0.47 09/14/21 09/14/21 Range/Units 08:29 11:23 WBC (5.0-10.0) 10^3/uL RBC (4.6-6.2) 10^6/uL Hgb (14.0-18.0) g/dL Hct (40.0-54.0) % MCV (80-100) fL MCH (27.0-34.0) pg MCHC (33.0-35.0) g/dL Plt Count (150-450) 10^3/uL Neut % (Auto) (42.2-75.2) % Lymph % (Auto) (20.5-50.1) % Barbour % (Auto) (2-8) % Eos % (Auto) (1.0-3.0) % Baso % (Auto) (0.0-1.0) % D-Dimer, Quantitative (0-400) ng/mL Sodium (136-145) mmol/L Potassium (3.5-5.1) mmol/L Chloride (98-107) mmol/L Carbon Dioxide (21-32) mmol/L Anion Gap (7-13) mEq/L BUN (7-18) mg/dL Creatinine (0.70-1.30) mg/dL Est Cr Clr Drug Dosing mL/min Estimated GFR (MDRD) Glucose (70-99) mg/dL POC Glucose 105 H 159 H (70-99) mg/dL Calcium (8.5-10.1) mg/dL Total Bilirubin (0.2-1.0) mg/dL Direct Bilirubin (0.0-0.2) mg/dL Indirect Bilirubin AST (15-37) U/L ALT (16-63) U/L Alkaline Phosphatase (46-116) U/L Total Protein (6.4-8.2) g/dL Albumin (3.4-5.0) g/dL Globulin Albumin/Globulin Ratio Olman Results Last 24 Hours: Microbiology 09/08/21 14:26 Aerobic Blood Culture - Final Blood - Venous - Lab Draw NO GROWTH AFTER 5 DAYS Anaerobic Blood Culture - Final NO GROWTH AFTER 5 DAYS 09/08/21 14:24 Aerobic Blood Culture - Final Blood - Arm, Left NO GROWTH AFTER 5 DAYS Anaerobic Blood Culture - Final NO GROWTH AFTER 5 DAYS Med Orders - Current: Current Medications Acetaminophen (Acetaminophen 325 Mg Tab) 650 mg PO Q4H PRN PRN Reason: Pain (Mild 1-3)/fever Last Admin: 09/11/21 21:10 Dose: 650 mg Documented by: Azithromycin (Azithromycin 250 Mg Tab) 250 mg PO DAILY [facility] Cholecalciferol (Cholecalciferol (Vitamin D3) 25 Mcg Tab) 25 mcg PO DAILY [facility] Last Admin: 09/14/21 09:09 Dose: 25 mcg Documented by: Dexamethasone (Dexamethasone 6 Mg Tablet) 6 mg PO DAILY@0800 [facility] Last Admin: 09/14/21 09:09 Dose: 6 mg Documented by: Dextrose/Water (50% Dextrose In Water 50 Ml Syringe) 25 ml IVPUSH ASDIRECTED PRN PRN Reason: Hypoglycemia BS<70 Docusate Sodium (Docusate Sodium 100 Mg Cap) 100 mg PO BID PRN PRN Reason: Constipation Enoxaparin Sodium (Enoxaparin 40 Mg/0.4 Ml Syringe) 100 mg SUBCUT BID [facility] Ceftriaxone Sodium 1 gm/ (Sodium Chloride) 50 mls @ 100 mls/hr IV Q24H [facility] Last Infusion: 09/14/21 10:00 Dose: Infused Documented by: Insulin Human Lispro (Insulin Lispro 100 Units/Ml 3 Ml Vial) 0 unit SUBCUT WITHMEALSANDBED [facility]; Protocol Last Admin: 09/14/21 09:11 Dose: Not Given Documented by: Multivitamins/Minerals/Vitamin C (Multivitamin Tab) 1 tab PO WITHBREAKFAST [facility] Ondansetron HCl (Ondansetron 4 Mg/2 Ml Sdv) 4 mg IVPUSH Q4H PRN PRN Reason: Nausea/Vomiting Pantoprazole Sodium (Pantoprazole 40 Mg Tab.Cr) 40 mg PO ACBREAKFAST [facility] Last Admin: 09/14/21 05:33 Dose: 40 mg Documented by: Sodium Chloride (Sodium Chloride 0.9% 10 Ml Syringe) 10 ml FLUSH ASDIRECTED PRN PRN Reason: Keep Vein Open Last Admin: 09/13/21 10:39 Dose: 10 ml Documented by: Zolpidem Tartrate (Zolpidem 5 Mg Tab) 10 mg PO BEDTIME PRN PRN Reason: Sleep Last Admin: 09/13/21 21:52 Dose: 10 mg Documented by: Discontinued Medications Diphenhydramine HCl (Diphenhydramine 50 Mg Cap) 50 mg PO ONETIME ONE Stop: 09/10/21 00:03 Last Admin: 09/10/21 00:16 Dose: 50 mg Documented by: Enoxaparin Sodium (Enoxaparin 100 Mg/1 Ml Syringe) 100 mg SUBCUT BID [facility] Last Admin: 09/10/21 08:36 Dose: 100 mg Documented by: Enoxaparin Sodium (Enoxaparin 40 Mg/0.4 Ml Syringe) 40 mg SUBCUT BID [facility] Last Admin: 09/14/21 09:08 Dose: 40 mg Documented by: Remdesivir 200 mg/ Sodium (Chloride) 250 mls @ 250 mls/hr IV ONETIME ONE Stop: 09/08/21 20:57 Last Admin: 09/08/21 20:43 Dose: 250 mls/hr Documented by: Remdesivir 100 mg/ Sodium (Chloride) 100 mls @ 100 mls/hr IV Q24H [facility] Stop: 09/12/21 20:59 Last Infusion: 09/12/21 21:42 Dose: Infused Documented by: Azithromycin 500 mg/ Sodium (Chloride) 250 mls @ 250 mls/hr IV Q24H [facility] Last Admin: 09/14/21 10:00 Dose: 250 mls/hr Documented by: Iopamidol (Iopamidol 755 Mg/Ml 100 Ml Bottle) 100 ml IVPUSH ONETIME ONE Stop: 09/08/21 15:44 Last Admin: 09/08/21 16:37 Dose: 79 ml Documented by: Multivitamins/Minerals (Multivitamins, Therapeutic With Minerals Tab) 1 tab PO WITHBREAKFAST [facility] Last Admin: 09/13/21 08:12 Dose: 1 tab Documented by: Zolpidem Tartrate (Zolpidem 5 Mg Tab) 5 mg PO BEDTIME PRN PRN Reason: Sleep Last Admin: 09/09/21 23:00 Dose: 5 mg Documented by: - Exam Quality Assessment: Supplemental Oxygen General: Alert, Oriented Neck: Supple Lungs: Normal Respiratory Effort, Decreased Breath Sounds, Rhonchi Cardiovascular: Regular Rate, Regular Rhythm GI/Abdominal Exam: Normal Bowel Sounds, Soft, Non-Tender Extremities: No Pedal Edema - Patient Data Lab Results Last 24 hrs: Laboratory Results - last 24 hr 09/13/21 09/13/21 09/13/21 Range/Units 12:14 17:13 20:37 WBC (5.0-10.0) 10^3/uL RBC (4.6-6.2) 10^6/uL Hgb (14.0-18.0) g/dL Hct (40.0-54.0) % MCV (80-100) fL MCH (27.0-34.0) pg MCHC (33.0-35.0) g/dL Plt Count (150-450) 10^3/uL Neut % (Auto) (42.2-75.2) % Lymph % (Auto) (20.5-50.1) % Barbour % (Auto) (2-8) % Eos % (Auto) (1.0-3.0) % Baso % (Auto) (0.0-1.0) % D-Dimer, Quantitative (0-400) ng/mL Sodium (136-145) mmol/L Potassium (3.5-5.1) mmol/L Chloride (98-107) mmol/L Carbon Dioxide (21-32) mmol/L Anion Gap (7-13) mEq/L BUN (7-18) mg/dL Creatinine (0.70-1.30) mg/dL Est Cr Clr Drug Dosing mL/min Estimated GFR (MDRD) Glucose (70-99) mg/dL POC Glucose 174 H 230 H 218 H (70-99) mg/dL Calcium (8.5-10.1) mg/dL Total Bilirubin (0.2-1.0) mg/dL Direct Bilirubin (0.0-0.2) mg/dL Indirect Bilirubin AST (15-37) U/L ALT (16-63) U/L Alkaline Phosphatase (46-116) U/L Total Protein (6.4-8.2) g/dL Albumin (3.4-5.0) g/dL Globulin Albumin/Globulin Ratio 09/14/21 09/14/21 09/14/21 Range/Units 06:30 06:38 06:38 WBC 12.0 H (5.0-10.0) 10^3/uL RBC 4.17 L (4.6-6.2) 10^6/uL Hgb 13.3 L (14.0-18.0) g/dL Hct 39.3 L (40.0-54.0) % MCV 94.2 (80-100) fL MCH 31.9 (27.0-34.0) pg MCHC 33.8 (33.0-35.0) g/dL Plt Count 405 (150-450) 10^3/uL Neut % (Auto) 79.2 H (42.2-75.2) % Lymph % (Auto) 10.1 L (20.5-50.1) % Barbour % (Auto) 9.8 H (2-8) % Eos % (Auto) 0.8 L (1.0-3.0) % Baso % (Auto) 0.1 (0.0-1.0) % D-Dimer, Quantitative 3280 H (0-400) ng/mL Sodium 139 (136-145) mmol/L Potassium 4.3 (3.5-5.1) mmol/L Chloride 106 (98-107) mmol/L Carbon Dioxide 25 (21-32) mmol/L Anion Gap 12.3 (7-13) mEq/L BUN 19 H (7-18) mg/dL Creatinine 0.84 (0.70-1.30) mg/dL Est Cr Clr Drug Dosing 97.76 mL/min Estimated GFR (MDRD) > 60 Glucose 120 H (70-99) mg/dL POC Glucose (70-99) mg/dL Calcium 8.0 L (8.5-10.1) mg/dL Total Bilirubin 0.5 (0.2-1.0) mg/dL Direct Bilirubin 0.2 (0.0-0.2) mg/dL Indirect Bilirubin 0.3 AST 42 H (15-37) U/L ALT 85 H (16-63) U/L Alkaline Phosphatase 58 (46-116) U/L Total Protein 6.3 L (6.4-8.2) g/dL Albumin 2.0 L (3.4-5.0) g/dL Globulin 4.3 Albumin/Globulin Ratio 0.47 09/14/21 09/14/21 Range/Units 08:29 11:23 WBC (5.0-10.0) 10^3/uL RBC (4.6-6.2) 10^6/uL Hgb (14.0-18.0) g/dL Hct (40.0-54.0) % MCV (80-100) fL MCH (27.0-34.0) pg MCHC (33.0-35.0) g/dL Plt Count (150-450) 10^3/uL Neut % (Auto) (42.2-75.2) % Lymph % (Auto) (20.5-50.1) % [place]bour % (Auto) (2-8) % Eos % (Auto) (1.0-3.0) % Baso % (Auto) (0.0-1.0) % D-Dimer, Quantitative (0-400) ng/mL Sodium (136-145) mmol/L Potassium (3.5-5.1) mmol/L Chloride (98-107) mmol/L Carbon Dioxide (21-32) mmol/L Anion Gap (7-13) mEq/L BUN (7-18) mg/dL Creatinine (0.70-1.30) mg/dL Est Cr Clr Drug Dosing mL/min Estimated GFR (MDRD) Glucose (70-99) mg/dL POC Glucose 105 H 159 H (70-99) mg/dL Calcium (8.5-10.1) mg/dL Total Bilirubin (0.2-1.0) mg/dL Direct Bilirubin (0.0-0.2) mg/dL Indirect Bilirubin AST (15-37) U/L ALT (16-63) U/L Alkaline Phosphatase (46-116) U/L Total Protein (6.4-8.2) g/dL Albumin (3.4-5.0) g/dL Globulin Albumin/Globulin Ratio Result Diagrams: 09/14/21 06:30 09/14/21 06:38 Olman Results Last 24 hrs: Microbiology 09/08/21 14:26 Aerobic Blood Culture - Final Blood - Venous - Lab Draw NO GROWTH AFTER 5 DAYS Anaerobic Blood Culture - Final NO GROWTH AFTER 5 DAYS 09/08/21 14:24 Aerobic Blood Culture - Final Blood - Arm, Left NO GROWTH AFTER 5 DAYS Anaerobic Blood Culture - Final NO GROWTH AFTER 5 DAYS Sepsis Event Note - Evaluation Sepsis Screening Result: No Definite Risk - Focused Exam Vital Signs: Vital Signs Temp Pulse Resp BP Pulse Ox 09/14/21 08:00 96.9 F 85 20 86 L 09/14/21 05:34 98 F 67 24 H 103/67 93 L - Problem List & Annotations (1) Pneumonia due to COVID-19 virus SNOMED Code(s): 364396166400987750 Code(s): U07.1 - COVID-19; J12.82 - PNEUMONIA DUE TO CORONAVIRUS DISEASE 2019 Status: Acute Current Visit: Yes (2) COVID SNOMED Code(s): 430671885 Code(s): U07.1 - COVID-19 Status: Acute Current Visit: No (3) Hypoxia SNOMED Code(s): 196765402 Code(s): R09.02 - HYPOXEMIA Status: Acute Current Visit: No - Problem List Review Problem List Initiated/Reviewed/Updated: Yes - My Orders Last 24 Hours: My Active Orders 09/14/21 12:00 Multivitamins [Tab-A-Chavez] 1 tab PO WITHBREAKFAST 09/14/21 21:00 Enoxaparin [Lovenox] 100 mg SUBCUT BID 09/15/21 05:11 BASIC METABOLIC PANEL,BMP [CHEM] AM D-DIMER QUANTITATIVE [COAG] AM HEPATIC FUNCTION PANEL,HFP [CHEM] AM 09/15/21 09:00 Azithromycin [Zithromax] 250 mg PO DAILY 09/16/21 05:11 BASIC METABOLIC PANEL,BMP [CHEM] AM D-DIMER QUANTITATIVE [COAG] AM 09/17/21 05:11 D-DIMER QUANTITATIVE [COAG] AM 09/18/21 05:11 D-DIMER QUANTITATIVE [COAG] AM - Plan Plan:: Acute hypoxemic respiratory failure Will supplement oxygen as needed Acute covid 19 pneumonia Vaccination status: unvaccinated Symptom onset: about 09/04/21 Covid test positive: 09/07/21 Treat with dexamethasone Treated with remdesivir (finished 5 days) Treat with mvi /vit d Follow daily cbc, bmp, trop, procal, ddimer Evaluations for concurrent bacterial infection: Procalcitonin: low continued leukocytosis c/o thick sputum started azithro, ceftriaxone for possible community acquired pneumonia - leukocytosis is better but still discolored sputum follow procalcitonin Evaluations for thrombotic complications Ddimer: increased initially - improved while on therapeutic Lovenox - I decreased lovenox to 40 mg bid - now high again CT chest negative for PE LE US r/o dvt negative Prophylaxis: increase lovenox back to therapeutic dose follow ddimer Hyponatremia Mild will follow Mildly Elevated Creatinine JEN POA improved will follow daily hyperglycemia noted likely due to dexamethasone no h/o DM started supplemental insulin and hypoglycemia protocol as needed will need out pt f/up chest pain likely related to pneumonia resolved negative trop - support oxygen need - f/up after pneumonia - consider stress test as out pt when respiratory status is good no PE on CT
[2021-09-14] MEDS: Multivitamin Tab PO SCH (13:09)
[2021-09-14] MEDS: Enoxaparin 100 MG/1 ML Syringe SUBCUT SCH (20:58)
[2021-09-14] MEDS: Multivitamins, Therapeutic with Minerals Tab PO SCH (22:25)
[2021-09-14] MEDS: Zolpidem 5 MG Tab PO PRN (23:57)
[2021-09-15] MEDS: Pantoprazole 40 MG Tab.CR PO SCH (05:39)
[2021-09-15 07:30] LABS: ANION GAP 10.4 mEq/L (7-13); CHLORIDE,CL 106 mmol/L (98-107); SODIUM,NA 138 mmol/L (136-145)
[2021-09-15] MEDS: Insulin Lispro 100 Units/ML 3 ML Vial SUBCUT SCH ×4 (09:55→21:03)
[2021-09-15] MEDS: Enoxaparin 100 MG/1 ML Syringe SUBCUT SCH ×2 (10:08→21:05)
[2021-09-15] MEDS: Cholecalciferol (Vitamin D3) 25 MCG Tab PO SCH (10:08)
[2021-09-15] MEDS: Azithromycin 250 MG Tab PO SCH (10:08)
[2021-09-15] MEDS: Multivitamin Tab PO SCH (10:08)
[2021-09-15] MEDS: Dexamethasone 6 MG TABLET PO SCH (10:08)
[2021-09-15] MEDS: cefTRIAXone 1 GM in Sodium Chloride 0.9% 50 ML IV SCH (10:11)
--- NOTE | 2021-09-15 13:42 | CR ---
PROCEDURE INFORMATION: Exam: XR Chest Exam date and time: 09/15/2021 1:03 PM Age: 66 years old Clinical indication: Other: Covid; Additional info: Continued hypoxia TECHNIQUE: Imaging protocol: XR of the chest. Views: 1 view. COMPARISON: CT Chest w Cont 09/08/2021 3:57 PM FINDINGS: Lungs: Ill-defined infiltrates observed in both lungs. Pleural spaces: Unremarkable. No pleural effusion. No pneumothorax. Heart/Mediastinum: Unremarkable. No cardiomegaly. Bones/joints: Unremarkable. IMPRESSION: Patchy bilateral pulmonary consolidation consistent with COVID-19
--- NOTE | 2021-09-15 22:49 | PCM.PN ---
- General Info Date of Service: 09/15/21 - Patient Data Vitals - Most Recent: Last Vital Signs Temp 98.3 F 09/15/21 20:00 Pulse 97 09/15/21 20:00 Resp 18 09/15/21 20:00 BP 123/92 H 09/15/21 20:00 Pulse Ox 92 L 09/15/21 20:00 Weight - Most Recent: 209 lb 11.2 oz I&O - Last 24 Hours: Intake & Output 09/15/21 09/15/21 09/15/21 06:59 14:59 22:59 Intake Total 840 360 Balance 840 360 Lab Results Last 24 Hours: Laboratory Results - last 24 hr 09/15/21 09/15/21 09/15/21 Range/Units 07:00 07:00 07:00 WBC 9.3 (5.0-10.0) 10^3/uL RBC 4.01 L (4.6-6.2) 10^6/uL Hgb 12.8 L (14.0-18.0) g/dL Hct 37.5 L (40.0-54.0) % MCV 93.5 (80-100) fL MCH 31.9 (27.0-34.0) pg MCHC 34.1 (33.0-35.0) g/dL Plt Count 405 (150-450) 10^3/uL Neut % (Auto) 73.8 (42.2-75.2) % Lymph % (Auto) 14.0 L (20.5-50.1) % [place] % (Auto) 11.2 H (2-8) % Eos % (Auto) 0.9 L (1.0-3.0) % Baso % (Auto) 0.1 (0.0-1.0) % D-Dimer, Quantitative 1260 H (0-400) ng/mL Sodium 138 (136-145) mmol/L Potassium 4.4 (3.5-5.1) mmol/L Chloride 106 (98-107) mmol/L Carbon Dioxide 26 (21-32) mmol/L Anion Gap 10.4 (7-13) mEq/L BUN 18 (7-18) mg/dL Creatinine 0.91 (0.70-1.30) mg/dL Est Cr Clr Drug Dosing 90.24 mL/min Estimated GFR (MDRD) > 60 Glucose 114 H (70-99) mg/dL POC Glucose (70-99) mg/dL Calcium 8.1 L (8.5-10.1) mg/dL Ferritin (26-388) mg/mL Total Bilirubin 0.5 (0.2-1.0) mg/dL Direct Bilirubin 0.2 (0.0-0.2) mg/dL Indirect Bilirubin 0.3 AST 30 (15-37) U/L ALT 66 H (16-63) U/L Alkaline Phosphatase 64 (46-116) U/L Lactate Dehydrogenase (85-227) U/L C-Reactive Protein (0.0-0.9) mg/dL Total Protein 6.4 (6.4-8.2) g/dL Albumin 2.0 L (3.4-5.0) g/dL Globulin 4.4 Albumin/Globulin Ratio 0.45 09/15/21 09/15/21 09/15/21 Range/Units 07:00 07:00 08:24 WBC (5.0-10.0) 10^3/uL RBC (4.6-6.2) 10^6/uL Hgb (14.0-18.0) g/dL Hct (40.0-54.0) % MCV (80-100) fL MCH (27.0-34.0) pg MCHC (33.0-35.0) g/dL Plt Count (150-450) 10^3/uL Neut % (Auto) (42.2-75.2) % Lymph % (Auto) (20.5-50.1) % [place] % (Auto) (2-8) % Eos % (Auto) (1.0-3.0) % Baso % (Auto) (0.0-1.0) % D-Dimer, Quantitative (0-400) ng/mL Sodium (136-145) mmol/L Potassium (3.5-5.1) mmol/L Chloride (98-107) mmol/L Carbon Dioxide (21-32) mmol/L Anion Gap (7-13) mEq/L BUN (7-18) mg/dL Creatinine (0.70-1.30) mg/dL Est Cr Clr Drug Dosing mL/min Estimated GFR (MDRD) Glucose (70-99) mg/dL POC Glucose 105 H (70-99) mg/dL Calcium (8.5-10.1) mg/dL Ferritin 1903 H (26-388) mg/mL Total Bilirubin (0.2-1.0) mg/dL Direct Bilirubin (0.0-0.2) mg/dL Indirect Bilirubin AST (15-37) U/L ALT (16-63) U/L Alkaline Phosphatase (46-116) U/L Lactate Dehydrogenase 343 H (85-227) U/L C-Reactive Protein 8.2 H (0.0-0.9) mg/dL Total Protein (6.4-8.2) g/dL Albumin (3.4-5.0) g/dL Globulin Albumin/Globulin Ratio 09/15/21 09/15/21 09/15/21 Range/Units 12:11 17:13 20:31 WBC (5.0-10.0) 10^3/uL RBC (4.6-6.2) 10^6/uL Hgb (14.0-18.0) g/dL Hct (40.0-54.0) % MCV (80-100) fL MCH (27.0-34.0) pg MCHC (33.0-35.0) g/dL Plt Count (150-450) 10^3/uL Neut % (Auto) (42.2-75.2) % Lymph % (Auto) (20.5-50.1) % [place] % (Auto) (2-8) % Eos % (Auto) (1.0-3.0) % Baso % (Auto) (0.0-1.0) % D-Dimer, Quantitative (0-400) ng/mL Sodium (136-145) mmol/L Potassium (3.5-5.1) mmol/L Chloride (98-107) mmol/L Carbon Dioxide (21-32) mmol/L Anion Gap (7-13) mEq/L BUN (7-18) mg/dL Creatinine (0.70-1.30) mg/dL Est Cr Clr Drug Dosing mL/min Estimated GFR (MDRD) Glucose (70-99) mg/dL POC Glucose 152 H 280 H 198 H (70-99) mg/dL Calcium (8.5-10.1) mg/dL Ferritin (26-388) mg/mL Total Bilirubin (0.2-1.0) mg/dL Direct Bilirubin (0.0-0.2) mg/dL Indirect Bilirubin AST (15-37) U/L ALT (16-63) U/L Alkaline Phosphatase (46-116) U/L Lactate Dehydrogenase (85-227) U/L C-Reactive Protein (0.0-0.9) mg/dL Total Protein (6.4-8.2) g/dL Albumin (3.4-5.0) g/dL Globulin Albumin/Globulin Ratio Med Orders - Current: Current Medications Acetaminophen (Acetaminophen 325 Mg Tab) 650 mg PO Q4H PRN PRN Reason: Pain (Mild 1-3)/fever Last Admin: 09/11/21 21:10 Dose: 650 mg Documented by: Azithromycin (Azithromycin 250 Mg Tab) 250 mg PO DAILY [facility] Last Admin: 09/15/21 10:08 Dose: 250 mg Documented by: Cholecalciferol (Cholecalciferol (Vitamin D3) 25 Mcg Tab) 25 mcg PO DAILY [facility] Last Admin: 09/15/21 10:08 Dose: 25 mcg Documented by: Dexamethasone (Dexamethasone 6 Mg Tablet) 6 mg PO DAILY@0800 [facility] Last Admin: 09/15/21 10:08 Dose: 6 mg Documented by: Dextrose/Water (50% Dextrose In Water 50 Ml Syringe) 25 ml IVPUSH ASDIRECTED PRN PRN Reason: Hypoglycemia BS<70 Docusate Sodium (Docusate Sodium 100 Mg Cap) 100 mg PO BID PRN PRN Reason: Constipation Enoxaparin Sodium (Enoxaparin 100 Mg/1 Ml Syringe) 100 mg SUBCUT BID [facility] Last Admin: 09/15/21 21:05 Dose: 100 mg Documented by: Ceftriaxone Sodium 1 gm/ (Sodium Chloride) 50 mls @ 100 mls/hr IV Q24H [facility] Last Admin: 09/15/21 10:11 Dose: 100 mls/hr Documented by: Insulin Human Lispro (Insulin Lispro 100 Units/Ml 3 Ml Vial) 0 unit SUBCUT WITHMEALSANDBED [facility]; Protocol Last Admin: 09/15/21 21:03 Dose: 2 units Documented by: Ondansetron HCl (Ondansetron 4 Mg/2 Ml Sdv) 4 mg IVPUSH Q4H PRN PRN Reason: Nausea/Vomiting Pantoprazole Sodium (Pantoprazole 40 Mg Tab.Cr) 40 mg PO ACBREAKFAST [facility] Last Admin: 09/15/21 05:39 Dose: 40 mg Documented by: Sodium Chloride (Sodium Chloride 0.9% 10 Ml Syringe) 10 ml FLUSH ASDIRECTED PRN PRN Reason: Keep Vein Open Last Admin: 09/13/21 10:39 Dose: 10 ml Documented by: Zolpidem Tartrate (Zolpidem 5 Mg Tab) 10 mg PO BEDTIME PRN PRN Reason: Sleep Last Admin: 09/14/21 23:57 Dose: 10 mg Documented by: Discontinued Medications Diphenhydramine HCl (Diphenhydramine 50 Mg Cap) 50 mg PO ONETIME ONE Stop: 09/10/21 00:03 Last Admin: 09/10/21 00:16 Dose: 50 mg Documented by: Enoxaparin Sodium (Enoxaparin 100 Mg/1 Ml Syringe) 100 mg SUBCUT BID [facility] Last Admin: 09/10/21 08:36 Dose: 100 mg Documented by: Enoxaparin Sodium (Enoxaparin 40 Mg/0.4 Ml Syringe) 40 mg SUBCUT BID [facility] Last Admin: 09/14/21 09:08 Dose: 40 mg Documented by: Remdesivir 200 mg/ Sodium (Chloride) 250 mls @ 250 mls/hr IV ONETIME ONE Stop: 09/08/21 20:57 Last Admin: 09/08/21 20:43 Dose: 250 mls/hr Documented by: Remdesivir 100 mg/ Sodium (Chloride) 100 mls @ 100 mls/hr IV Q24H ERIKA Stop: 09/12/21 20:59 Last Infusion: 09/12/21 21:42 Dose: Infused Documented by: Azithromycin 500 mg/ Sodium (Chloride) 250 mls @ 250 mls/hr IV Q24H [facility] Last Infusion: 09/14/21 18:00 Dose: Infused Documented by: Iopamidol (Iopamidol 755 Mg/Ml 100 Ml Bottle) 100 ml IVPUSH ONETIME ONE Stop: 09/08/21 15:44 Last Admin: 09/08/21 16:37 Dose: 79 ml Documented by: Multivitamins/Minerals (Multivitamins, Therapeutic With Minerals Tab) 1 tab PO WITHBREAKFAST [facility] Last Admin: 09/14/21 22:25 Dose: Not Given Documented by: Multivitamins/Minerals/Vitamin C (Multivitamin Tab) 1 tab PO WITHBREAKFAST ERIKA Last Admin: 09/15/21 10:08 Dose: 1 tab Documented by: Zolpidem Tartrate (Zolpidem 5 Mg Tab) 5 mg PO BEDTIME PRN PRN Reason: Sleep Last Admin: 09/09/21 23:00 Dose: 5 mg Documented by: - Patient Data Lab Results Last 24 hrs: Laboratory Results - last 24 hr 09/15/21 09/15/21 09/15/21 Range/Units 07:00 07:00 07:00 WBC 9.3 (5.0-10.0) 10^3/uL RBC 4.01 L (4.6-6.2) 10^6/uL Hgb 12.8 L (14.0-18.0) g/dL Hct 37.5 L (40.0-54.0) % MCV 93.5 (80-100) fL MCH 31.9 (27.0-34.0) pg MCHC 34.1 (33.0-35.0) g/dL Plt Count 405 (150-450) 10^3/uL Neut % (Auto) 73.8 (42.2-75.2) % Lymph % (Auto) 14.0 L (20.5-50.1) % [place] % (Auto) 11.2 H (2-8) % Eos % (Auto) 0.9 L (1.0-3.0) % Baso % (Auto) 0.1 (0.0-1.0) % D-Dimer, Quantitative 1260 H (0-400) ng/mL Sodium 138 (136-145) mmol/L Potassium 4.4 (3.5-5.1) mmol/L Chloride 106 (98-107) mmol/L Carbon Dioxide 26 (21-32) mmol/L Anion Gap 10.4 (7-13) mEq/L BUN 18 (7-18) mg/dL Creatinine 0.91 (0.70-1.30) mg/dL Est Cr Clr Drug Dosing 90.24 mL/min Estimated GFR (MDRD) > 60 Glucose 114 H (70-99) mg/dL POC Glucose (70-99) mg/dL Calcium 8.1 L (8.5-10.1) mg/dL Ferritin (26-388) mg/mL Total Bilirubin 0.5 (0.2-1.0) mg/dL Direct Bilirubin 0.2 (0.0-0.2) mg/dL Indirect Bilirubin 0.3 AST 30 (15-37) U/L ALT 66 H (16-63) U/L Alkaline Phosphatase 64 (46-116) U/L Lactate Dehydrogenase (85-227) U/L C-Reactive Protein (0.0-0.9) mg/dL Total Protein 6.4 (6.4-8.2) g/dL Albumin 2.0 L (3.4-5.0) g/dL Globulin 4.4 Albumin/Globulin Ratio 0.45 09/15/21 09/15/21 09/15/21 Range/Units 07:00 07:00 08:24 WBC (5.0-10.0) 10^3/uL RBC (4.6-6.2) 10^6/uL Hgb (14.0-18.0) g/dL Hct (40.0-54.0) % MCV (80-100) fL MCH (27.0-34.0) pg MCHC (33.0-35.0) g/dL Plt Count (150-450) 10^3/uL Neut % (Auto) (42.2-75.2) % Lymph % (Auto) (20.5-50.1) % [place] % (Auto) (2-8) % Eos % (Auto) (1.0-3.0) % Baso % (Auto) (0.0-1.0) % D-Dimer, Quantitative (0-400) ng/mL Sodium (136-145) mmol/L Potassium (3.5-5.1) mmol/L Chloride (98-107) mmol/L Carbon Dioxide (21-32) mmol/L Anion Gap (7-13) mEq/L BUN (7-18) mg/dL Creatinine (0.70-1.30) mg/dL Est Cr Clr Drug Dosing mL/min Estimated GFR (MDRD) Glucose (70-99) mg/dL POC Glucose 105 H (70-99) mg/dL Calcium (8.5-10.1) mg/dL Ferritin 1903 H (26-388) mg/mL Total Bilirubin (0.2-1.0) mg/dL Direct Bilirubin (0.0-0.2) mg/dL Indirect Bilirubin AST (15-37) U/L ALT (16-63) U/L Alkaline Phosphatase (46-116) U/L Lactate Dehydrogenase 343 H (85-227) U/L C-Reactive Protein 8.2 H (0.0-0.9) mg/dL Total Protein (6.4-8.2) g/dL Albumin (3.4-5.0) g/dL Globulin Albumin/Globulin Ratio 09/15/21 09/15/21 09/15/21 Range/Units 12:11 17:13 20:31 WBC (5.0-10.0) 10^3/uL RBC (4.6-6.2) 10^6/uL Hgb (14.0-18.0) g/dL Hct (40.0-54.0) % MCV (80-100) fL MCH (27.0-34.0) pg MCHC (33.0-35.0) g/dL Plt Count (150-450) 10^3/uL Neut % (Auto) (42.2-75.2) % Lymph % (Auto) (20.5-50.1) % [place] % (Auto) (2-8) % Eos % (Auto) (1.0-3.0) % Baso % (Auto) (0.0-1.0) % D-Dimer, Quantitative (0-400) ng/mL Sodium (136-145) mmol/L Potassium (3.5-5.1) mmol/L Chloride (98-107) mmol/L Carbon Dioxide (21-32) mmol/L Anion Gap (7-13) mEq/L BUN (7-18) mg/dL Creatinine (0.70-1.30) mg/dL Est Cr Clr Drug Dosing mL/min Estimated GFR (MDRD) Glucose (70-99) mg/dL POC Glucose 152 H 280 H 198 H (70-99) mg/dL Calcium (8.5-10.1) mg/dL Ferritin (26-388) mg/mL Total Bilirubin (0.2-1.0) mg/dL Direct Bilirubin (0.0-0.2) mg/dL Indirect Bilirubin AST (15-37) U/L ALT (16-63) U/L Alkaline Phosphatase (46-116) U/L Lactate Dehydrogenase (85-227) U/L C-Reactive Protein (0.0-0.9) mg/dL Total Protein (6.4-8.2) g/dL Albumin (3.4-5.0) g/dL Globulin Albumin/Globulin Ratio Result Diagrams: 09/15/21 07:00 09/15/21 07:00 Sepsis Event Note - Evaluation Sepsis Screening Result: No Definite Risk - Focused Exam Vital Signs: Vital Signs Temp Pulse Resp BP Pulse Ox Pulse Ox 09/15/21 20:00 98.3 F 97 18 123/92 H 92 L 09/15/21 18:00 92 L 09/15/21 16:00 98 F 106 H 20 126/73 09/15/21 12:00 97.7 F 93 16 112/73 90 L - Problem List Review Problem List Initiated/Reviewed/Updated: No - My Orders Last 24 Hours: My Active Orders 09/15/21 17:00 PROCALCITONIN [REF] Routine - Plan Plan:: HOSPITALIST PROGRESS NOTE SUBJECTIVE: Feels isolated being in hospital this long. Occasional mild non- productive cough. Improving oral intake, malaise and dyspnea on exertion. A 7- system ROS otherwise negative for major or concerning findings. OBJECTIVE: Vitals reviewed. Heart and lung sounds normal. A 7-system physical exam otherwise negative for major or concerning findings. I viewed result of labwork and imaging in chart. ASSESSMENT / PLAN: Van was admitted on 09/08 for productive cough, chills and malaise. Acute hypoxic resp failure. O2 sat gradually improving. Had a short duration of worsening hypoxia on 09/14 with requirement as high as 10L; improving and requiring 4-6L via cannula at this time. D-dimer >3x ULN as of 09/15, CRP significantly elevated at 8. If O2 sat fluctuate again, PE study can be considered; on lovenox therapeutic dose as of 09/14. Will need home O2 eval before discharge. Covid19 pneumonia of both lungs in unvaccinated patient. Symptom onset 09/04, diagnosis 09/07, treatment started 09/08. Finished remdesivir on 09/12. Continues on dexamethasone. Community acquired pneumonia of both lungs. On ceftriaxone since 09/10 and azithromycin since 09/14 in setting of thick and discolored sputum and recent leukocytosis; procal non-concerning. Will consider stopping antibiotic 09/16 after finishing total 7d course. Steroid induced hyperglycemia. On correction lispro; been using upto 10u daily. A1c ordered to look for T2DM. Recent chest pain, unclear if exertional. Outpatient evaluation may be offered. DVT px: lovenox therapeutic dose Status: Inpatient Code: Full Possible discharge in 1-2 days.
[2021-09-16] MEDS: Zolpidem 5 MG Tab PO PRN (00:06)
[2021-09-16] MEDS: Pantoprazole 40 MG Tab.CR PO SCH (05:58)
[2021-09-16 06:43] LABS: ANION GAP 12.2 mEq/L (7-13); CHLORIDE,CL 106 mmol/L (98-107); SODIUM,NA 140 mmol/L (136-145)
[2021-09-16 06:57] LABS: HEMOGLOBIN A1C 6.6 % (<5.7)
[2021-09-16] MEDS: Insulin Lispro 100 Units/ML 3 ML Vial SUBCUT SCH ×2 (08:20→16:19)
[2021-09-16] MEDS: cefTRIAXone 1 GM in Sodium Chloride 0.9% 50 ML IV SCH (09:31)
[2021-09-16] MEDS: Cholecalciferol (Vitamin D3) 25 MCG Tab PO SCH (09:32)
[2021-09-16] MEDS: Enoxaparin 100 MG/1 ML Syringe SUBCUT SCH (09:32)
[2021-09-16] MEDS: Azithromycin 250 MG Tab PO SCH (09:32)
[2021-09-16] MEDS: Dexamethasone 6 MG TABLET PO SCH (09:32)
[2021-09-16] MEDS ORDERED: Iopamidol 612 MG/ML 100 ML Bottle IVPUSH ONE (12:02)
[2021-09-16] MEDS ORDERED: Iopamidol 755 Mg/ML 100 ML Bottle IVPUSH ONE (12:03)
--- NOTE | 2021-09-16 12:15 | CT ---
PROCEDURE INFORMATION: Exam: CT Chest With Contrast; Diagnostic Exam date and time: 09/16/2021 11:31 AM Age: 66 years old Clinical indication: Other: Rising d-dimer and setting off covid 19 ? pe TECHNIQUE: Imaging protocol: Diagnostic computed tomography of the chest with contrast. Radiation optimization: All CT scans at this facility use at least one of these dose optimization techniques: automated exposure control; mA and/or kV adjustment per patient size (includes targeted exams where dose is matched to clinical indication); or iterative reconstruction. Contrast material: ISOVUE 370; Contrast volume: 100 ml; Contrast route: INTRAVENOUS (IV); COMPARISON: CT Chest w Cont 09/08/2021 3:57 PM FINDINGS: Lungs: Bilateral peripheral pulmonary infiltrates with interstitial thickening in the dense ground-glass and areas of consolidation, especially in the lung bases posteriorly. The appearance typical for COVID-19 pneumonia. Pleural spaces: Unremarkable. No pneumothorax. No pleural effusion. Heart: Cardiomegaly. Mediastinal space: Large esophageal hiatal hernia. Aorta: Unremarkable. No aortic aneurysm. Lymph nodes: Unremarkable. No enlarged lymph nodes. 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 Soft tissues: Unremarkable. IMPRESSION: 1. No pulmonary embolism is identified 2. Progression of dense consolidation in both lungs of the patchy bilateral peripheral pulmonary infiltrates consistent with COVID-19 pneumonia.
--- NOTE | 2021-09-16 13:12 | PCM.DCSUM1 ---
Discharge Summary - Hospital Course Free Text/Narrative:: DISCHARGE SUMMARY Van was admitted on 09/08 for productive cough, chills and malaise. Acute hypoxic resp failure. O2 sat gradually improved. Had a short duration of worsening hypoxia on 09/14 with requirement as high as 10L; improved and was requiring 4L at rest and 6L with activity via cannula on discharge day. D-dimer >3x ULN as of 09/15; CT 09/16 negative for PE but positive for worsening infiltrates; I explained these findings to him; he mentioned consistent and gradual daily improvement in symptoms and requested home discharge on 09/16. Discharged on home oxygen as above. Covid19 pneumonia of both lungs in unvaccinated patient. Symptom onset 09/04, diagnosis 09/07, treatment started 09/08. Finished remdesivir on 09/12. Dexamethasone PO prescribed at discharge to finish 10d course. Community acquired pneumonia of both lungs. Received ceftriaxone since . Steroid induced hyperglycemia. Probable type 2 diabetes (A1c 6.6). Used correction lispro upto 10u daily. I informed him of this finding and asked him to discuss further eval and management with primary care provider. Recent chest pain, unclear if exertional. Outpatient evaluation may be offered after further improvement from covid19. He was set up with a local primary care provider at discharge. - Discharge Data Discharge Date: 09/16/21 Discharge Disposition: Home, Self-Care 01 Condition: Stable - Referral to Home Health Primary Care Physician: Adi Do MD - Patient Instructions Diet: Diabetic Diet Activity: As Tolerated - Discharge Plan *PRESCRIPTION DRUG MONITORING PROGRAM REVIEWED*: Not Applicable *COPY OF PRESCRIPTION DRUG MONITORING REPORT IN PATIENT RADHA: Not Applicable Prescriptions/Med Rec: dexAMETHasone [Dexamethasone] 6 mg PO DAILY 3 Days tab Pantoprazole [ProTONIX] 20 mg PO ACBREAKFAST 7 Days tab.cr Home Medications: Home Meds Zolpidem [Ambien] 5 mg PO DAILY 09/08/21 [History] Pantoprazole [ProTONIX] 20 mg PO ACBREAKFAST 7 Days tab.cr 09/16/21 [Rx] dexAMETHasone [Dexamethasone] 6 mg PO DAILY 3 Days tab 09/16/21 [Rx] Oxygen Therapy Mode: Nasal Cannula Oxygen Flow Rate (L/min): 4 Patient Handouts: Hypoxia, Pantoprazole tablets, Dexamethasone tablets Referrals: Ajay Cottrell NP [Nurse Practitioner] - - Discharge Summary/Plan Comment DC Time >30 min.: Yes Total # of Minutes for Discharge Time: 35 mins - General Info Date of Service: 09/16/21 - Patient Data Vitals - Most Recent: Last Vital Signs Temp 97.4 F 09/16/21 12:00 Pulse 95 09/16/21 12:00 Resp 20 09/16/21 12:00 BP 122/83 09/16/21 12:00 Pulse Ox 90 L 09/16/21 12:00 Weight - Most Recent: 209 lb 11.2 oz I&O - Last 24 hours: Intake & Output 09/15/21 09/16/21 09/16/21 22:59 06:59 14:59 Intake Total 660 320 400 Balance 660 320 400 Lab Results - Last 24 hrs: Laboratory Results - last 24 hr 09/15/21 09/15/21 09/15/21 Range/Units 07:00 07:00 17:13 WBC (5.0-10.0) 10^3/uL RBC (4.6-6.2) 10^6/uL Hgb (14.0-18.0) g/dL Hct (40.0-54.0) % MCV (80-100) fL MCH (27.0-34.0) pg MCHC (33.0-35.0) g/dL Plt Count (150-450) 10^3/uL Neut % (Auto) (42.2-75.2) % Lymph % (Auto) (20.5-50.1) % [place] % (Auto) (2-8) % Eos % (Auto) (1.0-3.0) % Baso % (Auto) (0.0-1.0) % Add Manual Diff D-Dimer, Quantitative (0-400) ng/mL Sodium (136-145) mmol/L Potassium (3.5-5.1) mmol/L Chloride (98-107) mmol/L Carbon Dioxide (21-32) mmol/L Anion Gap (7-13) mEq/L BUN (7-18) mg/dL Creatinine (0.70-1.30) mg/dL Est Cr Clr Drug Dosing mL/min Estimated GFR (MDRD) Glucose (70-99) mg/dL POC Glucose 280 H (70-99) mg/dL Hemoglobin A1c (<5.7) % Calcium (8.5-10.1) mg/dL Ferritin 1903 H (26-388) mg/mL Total Bilirubin (0.2-1.0) mg/dL Direct Bilirubin (0.0-0.2) mg/dL Indirect Bilirubin AST (15-37) U/L ALT (16-63) U/L Alkaline Phosphatase (46-116) U/L Lactate Dehydrogenase 343 H (85-227) U/L C-Reactive Protein 8.2 H (0.0-0.9) mg/dL Total Protein (6.4-8.2) g/dL Albumin (3.4-5.0) g/dL Globulin Albumin/Globulin Ratio 09/15/21 09/16/21 09/16/21 Range/Units 20:31 05:50 05:50 WBC (5.0-10.0) 10^3/uL RBC (4.6-6.2) 10^6/uL Hgb (14.0-18.0) g/dL Hct (40.0-54.0) % MCV (80-100) fL MCH (27.0-34.0) pg MCHC (33.0-35.0) g/dL Plt Count (150-450) 10^3/uL Neut % (Auto) (42.2-75.2) % Lymph % (Auto) (20.5-50.1) % [place] % (Auto) (2-8) % Eos % (Auto) (1.0-3.0) % Baso % (Auto) (0.0-1.0) % Add Manual Diff D-Dimer, Quantitative 1260 H (0-400) ng/mL Sodium 140 (136-145) mmol/L Potassium 4.2 (3.5-5.1) mmol/L Chloride 106 (98-107) mmol/L Carbon Dioxide 26 (21-32) mmol/L Anion Gap 12.2 (7-13) mEq/L BUN 22 H (7-18) mg/dL Creatinine 0.94 (0.70-1.30) mg/dL Est Cr Clr Drug Dosing 87.36 mL/min Estimated GFR (MDRD) > 60 Glucose 109 H (70-99) mg/dL POC Glucose 198 H (70-99) mg/dL Hemoglobin A1c (<5.7) % Calcium 8.4 L (8.5-10.1) mg/dL Ferritin (26-388) mg/mL Total Bilirubin (0.2-1.0) mg/dL Direct Bilirubin (0.0-0.2) mg/dL Indirect Bilirubin AST (15-37) U/L ALT (16-63) U/L Alkaline Phosphatase (46-116) U/L Lactate Dehydrogenase (85-227) U/L C-Reactive Protein (0.0-0.9) mg/dL Total Protein (6.4-8.2) g/dL Albumin (3.4-5.0) g/dL Globulin Albumin/Globulin Ratio 09/16/21 09/16/21 09/16/21 Range/Units 05:50 05:50 05:50 WBC 8.9 (5.0-10.0) 10^3/uL RBC 4.16 L (4.6-6.2) 10^6/uL Hgb 13.3 L (14.0-18.0) g/dL Hct 39.4 L (40.0-54.0) % MCV 94.7 (80-100) fL MCH 32.0 (27.0-34.0) pg MCHC 33.8 (33.0-35.0) g/dL Plt Count 464 H (150-450) 10^3/uL Neut % (Auto) 68.7 (42.2-75.2) % Lymph % (Auto) 16.9 L (20.5-50.1) % [place] % (Auto) 13.7 H (2-8) % Eos % (Auto) 0.6 L (1.0-3.0) % Baso % (Auto) 0.1 (0.0-1.0) % Add Manual Diff D-Dimer, Quantitative (0-400) ng/mL Sodium (136-145) mmol/L Potassium (3.5-5.1) mmol/L Chloride (98-107) mmol/L Carbon Dioxide (21-32) mmol/L Anion Gap (7-13) mEq/L BUN (7-18) mg/dL Creatinine (0.70-1.30) mg/dL Est Cr Clr Drug Dosing mL/min Estimated GFR (MDRD) Glucose (70-99) mg/dL POC Glucose (70-99) mg/dL Hemoglobin A1c 6.6 H (<5.7) % Calcium (8.5-10.1) mg/dL Ferritin (26-388) mg/mL Total Bilirubin 0.5 (0.2-1.0) mg/dL Direct Bilirubin 0.1 (0.0-0.2) mg/dL Indirect Bilirubin 0.4 AST 34 (15-37) U/L ALT 81 H (16-63) U/L Alkaline Phosphatase 74 (46-116) U/L Lactate Dehydrogenase (85-227) U/L C-Reactive Protein (0.0-0.9) mg/dL Total Protein 6.7 (6.4-8.2) g/dL Albumin 2.2 L (3.4-5.0) g/dL Globulin 4.5 Albumin/Globulin Ratio 0.49 09/16/21 09/16/21 Range/Units 08:18 12:06 WBC (5.0-10.0) 10^3/uL RBC (4.6-6.2) 10^6/uL Hgb (14.0-18.0) g/dL Hct (40.0-54.0) % MCV (80-100) fL MCH (27.0-34.0) pg MCHC (33.0-35.0) g/dL Plt Count (150-450) 10^3/uL Neut % (Auto) (42.2-75.2) % Lymph % (Auto) (20.5-50.1) % [place] % (Auto) (2-8) % Eos % (Auto) (1.0-3.0) % Baso % (Auto) (0.0-1.0) % Add Manual Diff D-Dimer, Quantitative (0-400) ng/mL Sodium (136-145) mmol/L Potassium (3.5-5.1) mmol/L Chloride (98-107) mmol/L Carbon Dioxide (21-32) mmol/L Anion Gap (7-13) mEq/L BUN (7-18) mg/dL Creatinine (0.70-1.30) mg/dL Est Cr Clr Drug Dosing mL/min Estimated GFR (MDRD) Glucose (70-99) mg/dL POC Glucose 208 H 98 (70-99) mg/dL Hemoglobin A1c (<5.7) % Calcium (8.5-10.1) mg/dL Ferritin (26-388) mg/mL Total Bilirubin (0.2-1.0) mg/dL Direct Bilirubin (0.0-0.2) mg/dL Indirect Bilirubin AST (15-37) U/L ALT (16-63) U/L Alkaline Phosphatase (46-116) U/L Lactate Dehydrogenase (85-227) U/L C-Reactive Protein (0.0-0.9) mg/dL Total Protein (6.4-8.2) g/dL Albumin (3.4-5.0) g/dL Globulin Albumin/Globulin Ratio Med Orders - Current: Current Medications Acetaminophen (Acetaminophen 325 Mg Tab) 650 mg PO Q4H PRN PRN Reason: Pain (Mild 1-3)/fever Last Admin: 09/11/21 21:10 Dose: 650 mg Documented by: Cholecalciferol (Cholecalciferol (Vitamin D3) 25 Mcg Tab) 25 mcg PO DAILY [facility] Last Admin: 09/16/21 09:32 Dose: 25 mcg Documented by: Dexamethasone (Dexamethasone 6 Mg Tablet) 6 mg PO DAILY@0800 [facility] Last Admin: 09/16/21 09:32 Dose: 6 mg Documented by: Dextrose/Water (50% Dextrose In Water 50 Ml Syringe) 25 ml IVPUSH ASDIRECTED PRN PRN Reason: Hypoglycemia BS<70 Docusate Sodium (Docusate Sodium 100 Mg Cap) 100 mg PO BID PRN PRN Reason: Constipation Enoxaparin Sodium (Enoxaparin 100 Mg/1 Ml Syringe) 100 mg SUBCUT BID [facility] Last Admin: 09/16/21 09:32 Dose: Not Given Documented by: Insulin Human Lispro (Insulin Lispro 100 Units/Ml 3 Ml Vial) 0 unit SUBCUT WITHMEALSANDBED [facility]; Protocol Last Admin: 09/16/21 08:20 Dose: 4 units Documented by: Ondansetron HCl (Ondansetron 4 Mg/2 Ml Sdv) 4 mg IVPUSH Q4H PRN PRN Reason: Nausea/Vomiting Pantoprazole Sodium (Pantoprazole 40 Mg Tab.Cr) 40 mg PO ACBREAKFAST [facility] Last Admin: 09/16/21 05:58 Dose: 40 mg Documented by: Sodium Chloride (Sodium Chloride 0.9% 10 Ml Syringe) 10 ml FLUSH ASDIRECTED PRN PRN Reason: Keep Vein Open Last Admin: 09/13/21 10:39 Dose: 10 ml Documented by: Zolpidem Tartrate (Zolpidem 5 Mg Tab) 10 mg PO BEDTIME PRN PRN Reason: Sleep Last Admin: 09/16/21 00:06 Dose: 10 mg Documented by: Discontinued Medications Azithromycin (Azithromycin 250 Mg Tab) 250 mg PO DAILY [facility] Last Admin: 09/16/21 09:32 Dose: 250 mg Documented by: Diphenhydramine HCl (Diphenhydramine 50 Mg Cap) 50 mg PO ONETIME ONE Stop: 09/10/21 00:03 Last Admin: 09/10/21 00:16 Dose: 50 mg Documented by: Enoxaparin Sodium (Enoxaparin 100 Mg/1 Ml Syringe) 100 mg SUBCUT BID [facility] Last Admin: 09/10/21 08:36 Dose: 100 mg Documented by: Enoxaparin Sodium (Enoxaparin 40 Mg/0.4 Ml Syringe) 40 mg SUBCUT BID [facility] Last Admin: 09/14/21 09:08 Dose: 40 mg Documented by: Remdesivir 200 mg/ Sodium (Chloride) 250 mls @ 250 mls/hr IV ONETIME ONE Stop: 09/08/21 20:57 Last Admin: 09/08/21 20:43 Dose: 250 mls/hr Documented by: Remdesivir 100 mg/ Sodium (Chloride) 100 mls @ 100 mls/hr IV Q24H [facility] Stop: 09/12/21 20:59 Last Infusion: 09/12/21 21:42 Dose: Infused Documented by: Ceftriaxone Sodium 1 gm/ (Sodium Chloride) 50 mls @ 100 mls/hr IV Q24H [facility] Last Admin: 09/16/21 09:31 Dose: 100 mls/hr Documented by: Azithromycin 500 mg/ Sodium (Chloride) 250 mls @ 250 mls/hr IV Q24H [facility] Last Infusion: 09/14/21 18:00 Dose: Infused Documented by: Iopamidol (Iopamidol 755 Mg/Ml 100 Ml Bottle) 100 ml IVPUSH ONETIME ONE Stop: 09/08/21 15:44 Last Admin: 09/08/21 16:37 Dose: 79 ml Documented by: Iopamidol (Iopamidol 755 Mg/Ml 100 Ml Bottle) 100 ml IVPUSH ONETIME ONE Stop: 09/16/21 12:04 Last Admin: 09/16/21 12:09 Dose: 100 ml Documented by: Multivitamins/Minerals (Multivitamins, Therapeutic With Minerals Tab) 1 tab PO WITHBREAKFAST ERIKA Last Admin: 09/14/21 22:25 Dose: Not Given Documented by: Multivitamins/Minerals/Vitamin C (Multivitamin Tab) 1 tab PO WITHBREAKFAST ERIKA Last Admin: 09/15/21 10:08 Dose: 1 tab Documented by: Zolpidem Tartrate (Zolpidem 5 Mg Tab) 5 mg PO BEDTIME PRN PRN Reason: Sleep Last Admin: 09/09/21 23:00 Dose: 5 mg Documented by:
== END 2021-09-16 18:30 | disposition home or self-care (01) | DRG 177 ==
LOC: DL.ED 13:43 → DL.MS 19:01
PROVIDERS: ADMIT Internal Medicine; ATTEND Hospitalist
PROC: XW033E5 Introduction of Remdesivir Anti-infective into Peripheral Vein, Percutaneous Approach, New Technology Group 5 (ICD-10-PCS; principal; 2021-09-08)
PROC: 3E0DX3Z Introduction of Anti-inflammatory into Mouth and Pharynx, External Approach (ICD-10-PCS; principal; 2021-09-08)
PROC: 8E0ZXY6 Isolation (ICD-10-PCS; principal; 2021-09-08)
DX: U07.1 COVID-19 (principal); J96.01 Acute respiratory failure with hypoxia; J12.82 Pneumonia due to coronavirus disease 2019; E87.1 Hypo-osmolality and hyponatremia; E11.65 Type 2 diabetes mellitus with hyperglycemia; T38.0X5A Adverse effect of glucocorticoids and synthetic analogues, initial encounter; R09.02 Hypoxemia; R07.9 Chest pain, unspecified; R79.89 Other specified abnormal findings of blood chemistry; Z79.899 Other long term (current) drug therapy
CPT/HCPCS: 36415; 71260; 80053; 83605; 84484; 85025; 85379; 87040 ×2; 93005; 99285; Q9967; 71045; 80048; 80076; 82728; 82947; 83036; 83615; 84145; 86140; 93970; 94010; A9270-GY; J0456; J0696; J1650; J1815-GY; J7050; J8540; Q0163